=== PATIENT | female | born 1950 | race Caucasian/White ===

== ENCOUNTER 2020-03-09 02:13 | Outpatient (CLI) | payer MEDICARE, MEDICAID, SELFPAY ==
[2020-03-09 17:02] LABS: SARS-CoV-2 RNA PCR Negative
== END 2020-03-09 02:14 | disposition home or self-care (01) ==
LOC: ANHCOVIDDT 02:13
PROVIDERS: PCP Internal Medicine; Visit Provider Internal Medicine Gastroenterology
DX: Z01.812 Encounter for preprocedural laboratory examination (principal); Z20.828 Contact with and (suspected) exposure to other viral communicable diseases
CPT/HCPCS: 87635; C9803; U0003

== ENCOUNTER 2020-03-29 14:33 | Outpatient (CLI) | payer MEDICARE, MEDICAID, SELFPAY ==
--- NOTE | ~2020-03-29 | CT_ITS ---
EXAMINATION: CT chest abdomen pelvis w con DATE: 03/29/2020 15:46 INDICATION: Dyspnea. Rectal pain. TECHNIQUE: Computed tomography (CT) of the chest, abdomen, and pelvis was performed with 100 cc Omnip aque 350 intravenous contrast. Automated exposure control and iterative reconstruction technique were employed. Exam dose: 239.28 mGy-cm total exam DLP. COMPARISON: 04/03/2017 CT abdomen pelvis FINDINGS: CHEST CT: Lower anterior cervical spine surgical fusion. There is very dense breast stroma bilaterally. Normal size and homogeneous enhancement of the thyroid gland. No thyroid mass lesion is evident. No hilar or mediastinal mass lesion or lymphadenopathy. Normal heart size. No thoracic aortic aneurys m or dissection. Normal heart size. No pericardial or pleural effusion. Moderate emphysematous changes are noted. Mild bilateral apical scarring. 4.5 mm nodule is noted in the right upper lobe (series 4 image 62). 3 mm nodule, left upper lobe (series 4 image 46) There is mild discoid atelectasis or scarring in the lingula and the posteromedial left lower lobe. Calcified right lower lobe pulmonary granuloma. ABDOMEN/PELVIS CT: There is chronic intrahepatic and extrahepatic bile duct dilatation, the common bile duct measuring u p to 10.5 mm compared to approximately 9.5 mm on 04/03/2017. There is pancreatic duct dilatation to ap proximately 3 mm diameter, compared to approximately 2.7 mm on 04/03/2017. Status post cholecystectomy . Recommend correlation with serum bilirubin levels. If further evaluation is desired, consider MRCP. No hepatic, splenic or pancreatic space-occupying mass lesion is evident. Normal morphology of the adrenal glands. No renal mass lesion is evident. No urinary tract calculus or hydroureteronephrosis. The urinary blad ciara is unremarkable. The uterus is absent. There are some small bowel air-fluid levels but no small bowel dilatation or wall thickening, pneumat osis or intraperitoneal free air. There is a suture line at the rectosigmoid area. There is a promine nt of fecal material and gas in the colon but no apparent bowel obstruction. Grade 1 anterolisthesis at L4-5 due to degenerative change at the apophyseal joints. No suspicious osteolytic or osteoblastic lesions are noted. IMPRESSION: COPD 4.5 mm right upper lobe and 3 mm left upper lobe nodules; consider CT follow-up in 6 months Chronic mildly increased bile and pancreatic duct dilatation compared to 04/03/2017 Status post cholecystectomy Reviewed, dictated and finalized at [facility]. Reviewed, dictated and finalized at location [facility]. IMPRESSION: COPD 4.5 mm right upper lobe and 3 mm left upper lobe nodules; consider CT follow-up in 6 months Chronic mildly increased bile and pancreatic duct dilatation compared to 017 Status post cholecystectomy
[2020-03-29 15:38] LABS: Estimated Glomerular Filt Rate > 60
== END 2020-03-29 14:34 | disposition home or self-care (01) ==
PROVIDERS: PCP Internal Medicine; Visit Provider Internal Medicine Hematology & Oncology
DX: K62.89 Other specified diseases of anus and rectum (principal); R06.00 Dyspnea, unspecified; J44.9 Chronic obstructive pulmonary disease, unspecified; Z90.49 Acquired absence of other specified parts of digestive tract
CPT/HCPCS: 71260; 74177; Q9967

== ENCOUNTER 2020-04-01 10:39 | Outpatient (CLI) | payer MEDICARE, MEDICAID, SELFPAY ==
[2020-04-01 11:04] LABS: Basophils Percent Auto 0.6 % (0.2-1.2); Eosinophils Percent Auto 0.7 % (0-4.4); Hematocrit 47.3 % (37.0-47.0); Immature Granulocyte Absolute 0.01 K/mm3 (0.00-0.031); Immature Granulocyte Percent A 0.2 % (0-0.5); Lymphocytes Absolute Auto 2.35 K/mm3 (0.9-3.2); Lymphocytes Percent Auto 43.6 % (18.3-44.2); Mean Corpuscular HGB Conc 31.7 g/dl (32-36); Mean Corpuscular Volume 97.7 fl (80-100); Mean Platelet Volume 11.1 fl (7.4-10.4); Monocytes Absolute Auto 0.4 K/mm3 (0.1-0.6); Neutrophils Absolute Auto 2.5 K/mm3 (1.3-6.7); Neutrophils Percent Auto 46.9 % (45.5-73.1); Nucleated Red Blood Cells Perc 0.6 % (0.0-0.2); Platelet Count Result 228 k/mm3 (150-375); Red Blood Count 4.84 M/mm3 (4.2-5.4); Red Cell Distribution Width 13.2 % (11.5-14.5); White Blood Count 5.4 K/mm3 (4.5-10.0)
[2020-04-01 12:30] LABS: Alanine Aminotransferase 10 U/L (4-35); Albumin Level 4.5 g/dL (3.5-5.1); Alkaline Phosphatase 90 U/L (38-126); Anion Gap 12 mmol/L (8-16); Aspartate Amino Transferase 23 U/L (14-36); Bilirubin,Total 0.3 mg/dL (0.2-1.3); Blood Urea Nitrogen 9 mg/dL (7-17); Calcium 9.5 mg/dL (8.4-10.2); Carbon Dioxide 31 mmol/L (22-30); Chloride 100 mmol/L (98-107); Estimated Glomerular Filt Rate > 60; Glucose 95 mg/dL (65-105); Potassium 3.9 mmol/L (3.4-5.0); Sodium 143 mmol/L (137-145)
== END 2020-04-01 10:40 | disposition home or self-care (01) ==
PROVIDERS: PCP Internal Medicine; Visit Provider Internal Medicine Hematology & Oncology
DX: R63.4 Abnormal weight loss (principal)
CPT/HCPCS: 36415; 80053; 85025

== ENCOUNTER 2020-10-28 18:58 | Inpatient (IN) | payer MEDICARE, MEDICAID, SELFPAY ==
[2020-10-28] VITALS (14 sets, daily range): BP systolic 88–158; BP diastolic 46–112; PULSE 57–77; RESP 8–21; TEMP 36.7; O2SAT 95–100
--- NOTE | ~2020-10-28 | XR_ITS ---
EXAMINATION: XR barium swallow modified DATE: 11/02/2020 13:37 INDICATION: Aspiration pneumonia TECHNIQUE: Modified barium esophagram was performed by myself to administered fluoroscopy, in conjun ction with speech pathologist who administered barium in varying consistencies as per speech patholog ist documentation. This was recorded on tape. A single fluoroscopic spot image was recorded. The DAP for this procedure was 2.190 Gycm2. Fluoroscopy exposure time was 3.8 minutes. FINDINGS: Oral stage: Adequate function. Pharyngeal phase: Reduced laryngeal elevation, reduced tongue base retraction, vallecular residue, py riform sinus residue. Laryngeal penetration: Present. Aspiration: Present. Laryngeal sensitivity: Present. IMPRESSION: Abnormal modified barium swallow. Please refer to speech pathologist findings and specifi c feeding recommendations. Reviewed, dictated and finalized at location [facility]. IMPRESSION: Abnormal modified barium swallow. Please refer to speech pathologis t findings and specific feeding recommendations.
--- NOTE | ~2020-10-28 | CT_ITS ---
EXAMINATION: CTA chest PE protocol EXAM DATE: 11/01/2020 15:26 INDICATION: Hypoxia. Tachycardia, concerns for pulmonary emboli. History of COPD. TECHNIQUE: Spiral CTA of the chest (pulmonary arteries) was performed with 100 cc Omnipaque 350 intr avenous contrast injection. Images were acquired during the pulmonary arterial phase. Coronal maxi mum intensity projection 3D-reconstructions were created by the technologist on dedicated workstation . Axial, coronal and sagittal reformatted images were reviewed. The dose-length product (DLP) for t his examination was 143.32 mGy-cm. The exposure was tailored according to patient size (auto mA exp osure control), and iterative reconstruction (ASIR) was used as additional dose reduction technique. Comparison is made to prior examination from 10/30/2020. FINDINGS: Development of extensive bibasilar consolidation with perihilar confluence, appearance most consistent with bacterial pneumonia, possibly aspiration etiology given the large amount of debris w ithin the tracheobronchial tree. Pulmonary arteries are well opacified and without intraluminal filli ng defects. No thoracic aortic dissection. There is mild to moderate emphysema and hyperinflation. There are no pleural or pericardial effusions . There is no mediastinal, hilar or axillary lymphadenopathy. There is no pneumothorax. Heart n ormal in size. There is mild coronary arterial calcification, arterial sclerosis. Upper abdomen is unremarkable. There is thoracic spondylosis without osteoblastic or osteolytic lesions identified. IMPRESSION: 1. Development of extensive bibasilar endobronchial debris and pneumonia. 2. Mild to moderate emphysema and hyperinflation. 3. No pulmonary emboli. Reviewed, dictated and finalized at location B.
--- NOTE | ~2020-10-28 | MR_ITS ---
EXAMINATION: MR brain IAC wo con EXAM DATE: 10/31/2020 12:38 INDICATION: Hearing loss, numb/tingling. TECHNIQUE: Multi-sequential, multiplanar MR images of the brain, brainstem, internal auditory canals were obtained without contrast. Whole brain sagittal T1, axial diffusion, gradient echo (T2*), T1, T 2, FLAIR sequences obtained. High resolution coronal 3-D FIESTA, coronal T1 FSE, axial T1 FSPGR of t he internal auditory canals. Comparison is made to prior examination from MR 10/29/20. FINDINGS: Study is limited due to patient motion. No evidence of mastoid or middle ear opacificatio n. The 7th/8th cranial nerve complexes are symmetric, normal in course and caliber. No cerebellopon aguila angle masses. Posterior fossa unremarkable. 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 There are no areas of restricted diffusion to sugge st acute infarction. There is no acute hemorrhage seen on the T2*, a hemosiderin sensitive sequence. No intraparenchymal brain mass. The ventricles are normal in size. There are no extra-axial collec tions. Flow voids are seen in the cerebral arteries on the T2-weighted sequences consistent with the ir expected patency. The orbits are unremarkable. Soft tissue is unremarkable. There is no signif icant interval change. IMPRESSION: 1. Unremarkable brain MRI examination. Reviewed, dictated and finalized at location B.
--- NOTE | ~2020-10-28 | CT_ITS ---
EXAMINATION: CT brain wo con DATE: 10/28/2020 19:13 INDICATION: Right-sided hemiparesis and slurred speech. TECHNIQUE: Computed tomography (CT) of the head was performed without intravenous contrast. Sagittal and coronal reconstructions were performed. The mA was adjusted according to patient size. Iterative reconstruction technique was employed. The dose-length product was 605.33 mGy-cm. COMPARISON: None FINDINGS: No acute intracranial hemorrhage, acute infarction or abnormal extra axial fluid collection. There ar e couple small dystrophic calcifications at the margins of a small region of decreased white matter a ttenuation in the anterior right frontal lobe. No evident underlying mass or associated mass effect. Ventricles are normal and symmetric. No mass/mass effect. Old fracture defect along the medial wall o f the right orbit. The orbits, paranasal sinuses and mastoid air cells are normal. IMPRESSION: 1. No acute intracranial process. 2. Nonspecific single small region of relatively prominent decreased white matter attenuation in the right frontal lobe. This could represent sequela of old infarct although the underlying cortex appear s relatively preserved and could not exclude an underlying parenchymal lesion. If clinically indicate d could consider further evaluation with either MRI or postcontrast CT. Dr. Scott discussed these findings with Dr. Jackson at 7:18 PM. Reviewed, dictated and finalized at location [facility]. IMPRESSION: 1. No acute intracranial process. 2. Nonspecific single small region of relatively prominent decreased white rafael er attenuation in the right frontal lobe. This could represent sequela of old i nfarct although the underlying cortex appears relatively preserved and could no t exclude an underlying parenchymal lesion. If clinically indicated could consi ciara further evaluation with either MRI or postcontrast CT. Dr. Scott discuss ed these findings with Dr. Jackson at 7:18 PM.
--- NOTE | ~2020-10-28 | CT_ITS ---
EXAMINATION: CT chest abdomen pelvis wo con DATE: 10/30/2020 09:21 INDICATION: Weight loss, emphysema, possible lung mass TECHNIQUE: Computed tomography (CT) of the chest, abdomen, and pelvis was performed without intraveno us contrast. Automated exposure control and iterative reconstruction technique were employed. Exam do se: 243.05 mGy-cm total exam DLP. COMPARISON: None FINDINGS: CHEST CT: Moderately prominent emphysematous changes of the lungs. Approximately 3.5 mg Lasix density, right upper lobe (series 4 image 67). Discoid atelectasis or scarring of middle lobe and at the bases of the lingula and lower lobes, left greater than right. Calcified right lower lobe pulmonary granuloma. Calcified right hilar nodes. No pulmonary infiltrate or consolidation. No hilar or mediastinal mass lesion or lymphadenopathy. Coronary and aortic and great vessel calcifications; no thoracic aortic aneurysm is evident. Normal heart size. No pericardial or pleural effusion. Very dense breast parenchyma is noted bilaterally. No axillary lymphadenopathy. CT ABDOMEN PELVIS: Status post cholecystectomy. The liver, spleen, pancreas, and adrenal glands and kidneys appear unrem arkable on this limited noncontrast examination. There is contrast material within the urinary bladde r and no evidence of intraluminal bladder mass. Status post hysterectomy A suture line is noted at the distal sigmoid colon. No bowel obstruction is evident. No evidence of i ntraperitoneal free air. There is atherosclerotic calcification of the abdominal aorta but no aneurysm. There are calcificatio ns at the origins of the renal arteries especially on the right as well as celiac and superior mesent dipak, iliac and femoral artery calcifications. No intraperitoneal or retroperitoneal or pelvic mass l esion or adenopathy or ascites is evident. No suspicious osteolytic or osteoblastic lesions are noted. Status post anterior cervical spine surgical fusion IMPRESSION: Emphysema Status post cholecystectomy Status post hysterectomy Status post left colon partial resection Status post cervical spine anterior surgical fusion Reviewed, dictated and finalized at [facility]. Reviewed, dictated and finalized at location [facility].
--- NOTE | ~2020-10-28 | XR_ITS ---
EXAMINATION: XR chest 1V portable DATE: 10/31/2020 16:40 INDICATION: Hypoxia. COPD . TECHNIQUE: frontal view of the chest was obtained. COMPARISON: Chest radiograph dated and CT dated 10/30/2020 FINDINGS: Emphysema with hyperexpansion of lungs. Significant interval progression in consolidation with air br onchograms in the right lower lung zone concerning for pneumonia. There is also been progression of m ore subtle airspace opacities the left lower lung zone also suspicious for pneumonia. No pleural effu adrienne or pneumothorax. Heart size is normal. Atherosclerotic aorta. Bone graft cages and anterior plat e and screw fixation for multilevel mid to lower cervical anterior spinal fusion. IMPRESSION: 1. Interval progression of lung disease in the bilateral lower lung zones, right greater than left, m ost consistent with pneumonia. Reviewed, dictated and finalized at location A. IMPRESSION: 1. Interval progression of lung disease in the bilateral lower lung zones, righ t greater than left, most consistent with pneumonia.
--- NOTE | ~2020-10-28 | CT_ITS ---
EXAMINATION: CTA BRAIN/CAROTID DATE: 10/28/2020 22:26 INDICATION: Aphasia and right-sided weakness and numbness TECHNIQUE: Computed tomographic angiography (CTA) of the head and neck was performed with 100 mL Omni paque-350 intravenous contrast. Multiplanar reconstructions and maximum intensity projection 3D-recon structions of the carotid arteries and of the intracranial arteries were created by the technologist on a separate workstation. Automated exposure control and iterative reconstruction technique were emp loyed.The dose-length product was 1048.82 mGy-cm. COMPARISON: Head CT dated 10/28/2020 FINDINGS: Carotid arteries: Thoracic aorta at the arch is normal in caliber with no dissection. Small amount of atherosclerotic p laque without significant stenosis at the origin of the left subclavian artery. There is a small amou nt of atherosclerotic plaque with 0% stenosis of the right carotid bulb relative to normal distal art joseline lumen diameter (NASCET criteria). There is 20% stenosis of the left carotid bulb relative to norm al distal artery lumen diameter. Left vertebral artery is dominant. Mild emphysema. There is diffuse bronchial wall thickening which could be seen with bronchitis or reactive airway disease/asthma. C3-C 6 instrumented anterior spinal fusion with plate and screw fixation. Intracranial arteries Atherosclerotic plaque without significant stenosis at the bilateral carotid siphons. There is no hem odynamically significant stenosis in the vertebral, basilar and internal carotid arteries. Left verte bral artery is dominant. There are no aneurysms identified. Both A1 and P1 segments are patent. Cer ebral arterial arborization appears symmetric. Small region of decreased attenuation in the right fro ntal white matter suspicious for sequela of chronic lacunar infarct. No mass or other abnormally enha ncing lesions identified in the brain. IMPRESSION: 1. 0% stenosis of the right carotid bulb relative to normal distal artery lumen diameter (NASCET crit eria). 2. 20% stenosis of the left carotid bulb relative to normal distal artery lumen diameter. 3. Unremarkable cerebral angiogram with no evident aneurysm, dissection or hemodynamically significan t stenosis. 4. Mild emphysema and diffuse bronchial wall thickening which could be seen with bronchitis or reacti ve airway disease/asthma. Reviewed, dictated and finalized at location A. IMPRESSION: 1. 0% stenosis of the right carotid bulb relative to normal distal artery lumen diameter (NASCET criteria). 2. 20% stenosis of the left carotid bulb relative to normal distal artery lumen diameter. 3. Unremarkable cerebral angiogram with no evident aneurysm, dissection or hemo dynamically significant stenosis. 4. Mild emphysema and diffuse bronchial wall thickening which could be seen wit h bronchitis or reactive airway disease/asthma.
--- NOTE | ~2020-10-28 | MR_ITS ---
EXAMINATION: MR brain/brain stem wo/w con EXAM DATE: 10/29/2020 15:00 INDICATION: Abnormal brain CT, right hemiparesis. TECHNIQUE: Magnetic resonance imaging (MRI) of the brain/brain stem obtained without contrast. Sagit ena T1, axial diffusion, gradient echo (T2*), T1, T2, FLAIR sequences obtained. Patient was then inj ected with 7 cc intravenous Multihance contrast. Axial and coronal postcontrast T1 weighted sequences obtained. Correlation is made to head CT from yesterday. FINDINGS: Small acute right frontal lobe infarction. There are no areas of restricted diffusion to de [place] santos ggest acute infarction. There is no acute hemorrhage seen on the T2*, a hemosiderin sensitive sequen ce. No intraparenchymal brain mass. The ventricles are normal in size. There are no extra-axial col lections. Flow voids are seen in the cerebral arteries on the T2-weighted sequences consistent with their expected patency. The orbits are unremarkable. Soft tissue is unremarkable. There are no ar eas of abnormal enhancement on the postcontrast images. IMPRESSION: 1. 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 2. No acute findings. Reviewed, dictated and finalized at location A.
--- NOTE | ~2020-10-28 | XR_ITS ---
EXAMINATION: XR chest 2V EXAM DATE: 10/29/2020 15:12 INDICATION: Weight loss, history of lung nodules. TECHNIQUE: Frontal and lateral projections of the chest obtained and reviewed. Comparison is made to prior examination from 12/18/2013. FINDINGS: The lungs are hyperinflated which can be seen with chronic obstructive pulmonary disease ( a clinical diagnosis of functional impairment), but is not diagnostic of it. No confluent consolidati on, pneumothorax or pleural effusion suspected. Cardiomediastinal silhouette is normal. There is aort ic arteriosclerosis. Some of fusion hardware. IMPRESSION: Chronic hyperinflation. Reviewed, dictated and finalized at location A. IMPRESSION: Chronic hyperinflation.
--- NOTE | 2020-10-28 19:04 | ECG_ITS ---
Measurements Intervals [place] Rate: 75 P: 74 MN: 153 QRS: 55 QRSD: 82 T: 60 QT: 366 QTc: 411 Interpretive Statements SINUS RHYTHM INCOMPLETE RIGHT BUNDLE BRANCH BLOCK BASELINE ARTIFACT- I, II, III, AVR, AVL, AVF, V2-V3 BORDERLINE ECG Electronically Signed On 10-28-2020 20:16:39 CDT by Gage Williamson D.O.
[2020-10-28 19:21] LABS: Glucose Point of Care 72 (65-105)
--- NOTE | 2020-10-28 19:34 | ED.NEUROSD ---
HPI - Neuro Symptoms/Deficit General Chief Complaint: Suspected CVA Stated Complaint: code stroke Time Seen by Provider: 10/28/20 19:18 Source: patient Mode of arrival: EMS Limitations: no limitations History of Present Illness HPI Narrative: Patient is a 70-year-old female complaining of right facial numbness, intermittent aphasia and mild right-sided weakness that started approximately 2 weeks ago. Patient states that she does have a history of right-sided weakness has been going on for years . Patient states that her aphasia started 2 weeks ago with last for about 30 minutes to an hour and would resolve. Patient saw her doctor today and told about the symptoms so she was sent here in the emergency room. Patient states that she currently does not have any symptoms except for very mild numbness on the right side of her face, otherwise denies aphasia, visual disturbance, focal weakness or numbness, chest pain, shortness of breath, dull pain, nausea, vomiting, fever or chills. Related Data Home Medications Medication Instructions Recorded Confirmed buprenorphine-naloxone 1 film SUBLINGUAL BID 03/02/20 03/02/20 cholecalciferol (vitamin D3) 125 mcg PO DAILY 03/02/20 03/02/20 [Vitamin D3] gabapentin 600 mg PO TID 03/02/20 03/02/20 Allergies Allergy/AdvReac Type Severity Reaction Status Date / Time codeine Allergy Unknown swelling Verified 03/02/20 10:45 of hands Review of Systems Review of Systems: All systems reviewed & are unremarkable except as noted in HPI and below Constitutional: Constitutional: Denies body ache(s), Denies chills, Denies excessive sweating, Denies fatigue, Denies fever(s), Denies headache(s), Denies lethargy, Denies malaise and Denies weight loss Eyes: Eyes: Denies blurry vision, Denies change in vision and Denies loss of vision ENT: Denies dizziness, Denies ear discharge, Denies headache(s), Denies lip swelling, Denies epistaxis, Denies nasal congestion, Denies neck pain, Denies throat swelling and Denies tongue swelling Cardiovascular: Cardiovascular: Denies chest pain, Denies chest pain at rest, Denies chest pain with activity, Denies diaphoresis, Denies rapid heart rate, Denies edema, Denies irregular heart rhythm, Denies lightheadedness, Denies palpitations, Denies dyspnea and Denies dyspnea on exertion Respiratory: Respiratory: Denies chest congestion, Denies cough, Denies hemoptysis, Denies dyspnea and Denies dyspnea on exertion Gastrointestinal: Gastrointestinal: Denies abdominal pain, Denies melena, Denies hematochezia, Denies diarrhea, Denies nausea, Denies vomiting and Denies hematemesis Musculoskeletal: Musculoskeletal: Denies abnormal gait, Denies deformity, Denies joint swelling, Denies limited range of motion, Denies neck pain and Denies numbness Neurologic: Denies Abnormal speech present, Denies abnormal gait, Denies confusion, Denies dizziness, Denies headache(s), Denies focal weakness, Denies loss of vision, Denies numbness, Denies Other visual disturbances and Denies Sensory deficit (Neuro) Psychiatric: Psychiatric: Denies confusion, Denies depression, Denies auditory hallucinations, Denies homicidal ideation and Denies suicidal ideation Endocrine: Endocrine: Denies cold intolerance, Denies excessive sweating, Denies fatigue, Denies heat intolerance and Denies palpitations Hematologic/Lymphatic: Hematologic/Lymphatic: Denies easy bleeding and Denies easy bruising Allergic/Immunologic: Allergic/Immunologic: Denies lip swelling, Denies throat swelling and Denies tongue swelling PMFSH Social History Social History Smoking packs per day: 1 Smoking cigarettes per day: 20.0 Years smoked: 55 Smoking pack-years: 55.00 Smoking status: Current every day smoker Tobacco type: cigarettes Second hand tobacco smoke exposure: No Alcohol intake: former Substance use: former Substance use type: marijuana and crack/cocaine Spiritual care concerns: No Comments Past
[2020-10-28 19:43] LABS: Basophils Percent Auto 0.8 % (0.2-1.2); Eosinophils Absolute Auto 0.1 K/mm3 (0-0.3); Eosinophils Percent Auto 1.7 % (0-4.4); Hematocrit 45.2 % (37.0-47.0); Immature Granulocyte Absolute 0.01 K/mm3 (0.00-0.031); Immature Granulocyte Percent A 0.2 % (0-0.5); Lymphocytes Absolute Auto 2.79 K/mm3 (0.9-3.2); Lymphocytes Percent Auto 52.7 % (18.3-44.2); Mean Corpuscular Hemoglobin 31.8 pg (26-34); Mean Corpuscular Volume 102.7 fl (80-100); Monocytes Absolute Auto 0.4 K/mm3 (0.1-0.6); Monocytes Percent Auto 7.4 % (2.6-8.5); Neutrophils Percent Auto 37.2 % (45.5-73.1); Platelet Count Result 168 k/mm3 (150-375); Red Cell Distribution Width 12.7 % (11.5-14.5); White Blood Count 5.3 K/mm3 (4.5-10.0)
[2020-10-28 20:20] LABS: Alanine Aminotransferase 9 U/L (4-35); Albumin Level 3.5 g/dL (3.5-5.1); Alkaline Phosphatase 83 U/L (38-126); Anion Gap 1 mmol/L (8-16); Aspartate Amino Transferase 20 U/L (14-36); Bilirubin,Total < 0.1 mg/dL (0.2-1.3); Blood Urea Nitrogen 8 mg/dL (7-17); Calcium 8.1 mg/dL (8.4-10.2); Carbon Dioxide 33 mmol/L (22-30); Chloride 108 mmol/L (98-107); Estimated CRCL calculation 24 ml/min; Estimated Glomerular Filt Rate 44; Glucose 79 mg/dL (65-105); Potassium 4.4 mmol/L (3.4-5.0); Sodium 142 mmol/L (137-145)
[2020-10-28 20:22] LABS: Prothrombin Time 13.2 Seconds (11.1-14.7)
[2020-10-28 20:24] LABS: Partial Thromboplastin Time 27.6 SECONDS (22.3-36.8)
[2020-10-28 20:32] LABS: Troponin I < 0.012 ng/mL (0.000-0.034)
[2020-10-28] MEDS: LACTATED RINGERS 1,000 ML 999 ML IV CONT (21:36)
[2020-10-28 22:28] LABS: Add Urine Microscopic? NO; Appearance Urine Clear (Clear); Bilirubin Urine Negative (Negative); Blood Urine Negative (Negative); Color Urine Straw (Yellow); Glucose Urine UA Negative (Negative); Ketones Urine Negative (Negative); Leukocyte Esterase Ur Negative LEU/UL (Negative); Nitrate Urine Negative (Negative); Protein Urine Negative (Negative); Urobilinogen Urine Negative mg/dL (<2.0)
[2020-10-28 22:31] LABS: Specific Grav Ur 1.004 (1.001-1.035)
[2020-10-28 22:43] LABS: Amphetamine Screen Urine Negative (Negative); Barbiturate Screen Urine Negative (Negative); Benzodiazepines Screen Urine Positive (Negative); Cannabinoid Screen Urine Positive (Negative); Cocaine Screen Urine Negative (Negative); Methadone Screen Urine Negative (Negative); Opiate Screen Urine Negative (Negative); Phencyclidine Screen Urine Negative (Negative)
[2020-10-29] VITALS (11 sets, daily range): BP systolic 96–151; BP diastolic 40–71; PULSE 46–68; RESP 16–20; TEMP 36.4–36.9; O2SAT 92–99; BMI 16.5; BMI 15.2
--- NOTE | 2020-10-29 | ECHO_ITS ---
Patient Info Name: Morena Sanchez Age: 70 years : 1950 Gender: Female Ht: 63 in Wt: 85 lbs BSA: 1.29 m2 HR: 56 bpm BP: 107 / 40 mmHg Heart Rhythm: Sinus Rhythm Technical Quality: Good Exam Date: 10/29/2020 1:18 PM Exam Location: [facility] Pulmonary Exam Room: 316 Patient Status: Inpatient Admit Date: 10/28/2020 Staff Ordering Physician: Maria Isabel Ordoñez PA-C Customer Experience Strategist: Manda Machuca RDCS Attending Provider: Maria Isabel Ordoñez PA-C Referring Physician: Smita RETANA; Exam Type: CA echo doppler w bubble study Study Info Indications - POSSIBLE CVA R/O CSE Complete two-dimensional, color flow and Doppler transthoracic echocardiogram is performed with agitated saline. Contrast/Agitated Saline Contrast/Ag. Saline: Agitated Saline Amount: 20.00 ml Administered By: Sami Chapin RN Existing IV Access: Yes IV Access Condition: patent with no signs of infiltration Summary 1. Left ventricular chamber dimension is normal. 2. Left ventricular systolic function is normal, estimated at 65-70%. 3. Left atrial chamber dimension is mildly enlarged. 4. No significant valve lesions. Left Ventricle Left ventricular chamber dimension is normal. Left ventricular systolic function is normal, estimated at 65-70%. The left ventricular diastolic function is normal. Right Ventricle Right ventricular chamber dimension is normal. Left Atria Left atrial chamber dimension is mildly enlarged. Right Atria Right atrial chamber dimension is normal. Atrial Septum Intact interatrial septum visualized by agitated saline imaging. Aortic Valve The aortic valve is trileaflet. There is mild aortic valve sclerosis. Pulmonic Valve The pulmonic valve is normal. Mitral Valve The mitral valve has normal leaflets. Tricuspid Valve The tricuspid valve leaflets are normal. Pericardium/Pleural The pericardium appears normal. Aorta The aortic root size at the sinus of Valsalva is normal. Left Ventricular Outflow Tract Name Value Normal LVOT 2D LVOT Diameter 2.0 cm LVOT Doppler LVOT Peak Velocity 111 cm/s LVOT Peak Gradient 5 mmHg LVOT Mean Gradient 2 mmHg LVOT VTI 23 cm LVOT VTI/AV VTI Ratio 0.8 LVOT Stroke Volume 71 ml LVOT CO 11.7 l/min LVOT CI 9.1 l/min/m2 Pulmonic Valve Name Value Normal PV Doppler PV Peak Velocity 98 cm/s PV Peak Gradient 4 mmHg Mitral Valve Name Value No
--- NOTE | 2020-10-29 00:38 | ADMGEN ---
This patient, Morena Sanchez, was admitted to [facility] Room 316-01. Patient/family oriented to hospital policies and general routines including ID bracelet, bed and alarms, visiting hours, pain management, procedures, bathroom and other care routines, personal items, smoking policy, room service/diet, and visiting hours. Information on how to activate the Rapid Response Team has been discussed. Patient/Family are encouraged to report perceived risks to care and to ask questions if they do not understand what they are told or what they should do.
--- NOTE | 2020-10-29 05:17 | PM.IMHP ---
H&P: HPI History of Present Illness Date/Time: 10/29/20 05:17 Chief Complaint: Right-sided weakness, slurred speech Narrative: 70-year-old female with past medical history of chronic pain syndrome, peripheral neuropathy and chronic tobacco use who presented to the ER from primary care physician's office via EMS due to right facial numbness and aphasia. Over the last 2 weeks he has noticed right facial numbness that is been constant. It is been accompanied by intermittent aphasia. The patient reports that her last episode of aphasia was about a week ago. When her aphasia occurs at usually last between 30 minutes to 1 hour before resolves. She currently only has mild numbness the right side her face down into her neck and shoulder. She has not noticed any accompanying headache or visual changes. She reports that she just generally feels weak all over. She denies any localizing weakness to her hands or legs. She states that she is having trouble walking because her legs are just weak and shaky. She has had a 40 lb weight loss over the last 3 years. She reports that at times she will be ravenous and cannot get enough food and then at other times she will be nauseated and can't convince her to self to eat anything. She has been under increased stress recently as her brother of lung cancer 3 months ago. Her aunrhgls-ss-gct also of lung cancer with metastasis to the brain in July. Her other brother was recently diagnosed with lung cancer. The patient had CT of the chest abdomen pelvis performed March 2020 which demonstrated 4.5 mm right upper lobe nodule and 3 mm left upper lobe nodule. The patient did not have any further imaging follow-up on these findings. She does report chronic shortness of breath that is unchanged from baseline. She has had a chronic cough for the last year. Cough is nonproductive. She is not having fevers or chills. She had incidental findings of mild emphysematous changes and diffuse bronchial wall thickening noted on her CT of the head and neck. She reports chronic urinary urgency. She has occasional sensation of incomplete bladder emptying. She denies any dysuria or hematuria. Review of Systems Review of Systems: Narrative: 12 systems were reviewed with pertinent positives and negatives per HPI. Except as documented in the HPI, all other systems were reviewed and are negative. [facility] Past Medical History Medical History (Updated 10/29/20 @ 08:28 by Dipti Dean DO) Chronic back pain Continuous tobacco abuse COPD (chronic obstructive pulmonary disease) Hepatitis C virus infection cured after antiviral drug therapy Lung nodules Noted on CT from March 2020 with 4.5 mm right upper lobe and 3 mm left upper lobe with nodule Myocardial infarct 2014 Neuropathy Surgical History Surgical History (Updated 10/29/20 @ 08:04 by Dipti Dean DO) History of appendectomy History of cardiac catheterization (~2012) History of colon resection (~2004) For uncertain reason History of colonoscopy with polypectomy (~2016) History of total hysterectomy with bilateral salpingo-oophorectomy (BSO) Hx of cholecystectomy Family History Family History (Updated 10/29/20 @ 08:06 by Dipti Dean DO) Sibling Lung cancer July 2020 Sibling Lung cancer 2nd brother just recently diagnosed with lung cancer August 2020 Social History Social History (Updated 10/29/20 @ 08:15 by Dipti Dean DO) Social History: The patient lives at home with her daughter and granddaughter. She has several other children as well. 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 She started smoking at age 15. She has smoked as much as a pack of cigarettes per day but has cut back to 1/3 of a pack per day. She denies any alcohol use or illicit substance use. Primary care physician: Dr. Daljit Walters Code status: Full code Ruth
[2020-10-29 06:21] LABS: Hematocrit 43.6 % (37.0-47.0); Hemoglobin 13.7 g/dL (12.0-15.0); Mean Corpuscular HGB Conc 31.4 g/dl (32-36); Mean Corpuscular Hemoglobin 31.8 pg (26-34); Mean Corpuscular Volume 101.2 fl (80-100); Mean Platelet Volume 11.2 fl (7.4-10.4); Platelet Count Result 171 k/mm3 (150-375); Red Blood Count 4.31 M/mm3 (4.2-5.4); Red Cell Distribution Width 12.4 % (11.5-14.5); White Blood Count 4.9 K/mm3 (4.5-10.0)
[2020-10-29 06:33] LABS: Anion Gap 1 mmol/L (8-16); Blood Urea Nitrogen 7 mg/dL (7-17); Calcium 8.6 mg/dL (8.4-10.2); Carbon Dioxide 33 mmol/L (22-30); Chloride 106 mmol/L (98-107); Estimated CRCL calculation 31 ml/min; Estimated Glomerular Filt Rate > 60; Glucose 82 mg/dL (65-105); Potassium 4.2 mmol/L (3.4-5.0); Sodium 140 mmol/L (137-145)
--- NOTE | 2020-10-29 07:07 | PHAR ---
HOME MED Buprenorphine-Naloxone 8-2 mg film has been verified. Only 1 film packet (1 dose) in the box at this time.
[2020-10-29 07:36] LABS: Folic Acid 5.1 ng/mL (2.76->20)
[2020-10-29] MEDS: GABAPENTIN 300 MG CAPSULE 600 MG PO ×3 (08:43→17:20)
--- NOTE | 2020-10-29 10:17 | PM.IMPN ---
Progress Note: A&P Assessment and Plan (1) Bradycardia: Code(s): R00.1 - Bradycardia, unspecified Status: Acute Assessment and Plan: Patients HR on EKG during ER visit was normal at 75 bpm. On Tele while she is resting in bed her HR drops to 35 bpm and in the 40's. Repeat EKG shows Bradycardia HR 45 bpm. Appears stable when compairing to ER EKG with some slight ST changes to V3-V6. Called and talked to Dr. He Cardiologyabout Consultation who will come up to further evaluate the patient. Continue monitoring on Tele. Do not give any medications that could decrease her heart rate. *Will HOLD MRI until Cardiology evaluates the patient because I want to keep her on Tele monitoring while Ajay. Appreciate Cardiology's input. (2) Aphasia: Code(s): R47.01 - Aphasia Status: Acute Assessment and Plan: Concerning for TIA vs CVA vs mass vs met CA. Initial noncontrast CT concerning for old stroke verses mass. Pending MRI of the brain and brainstem with and without contrast. Will start the patient on full-dose aspirin daily. Continue monitoring. Continue Neuro checks Q shift. (3) Numbness and tingling of right side of face: Code(s): R20.0 - Anesthesia of skin; R20.2 - Paresthesia of skin Status: Acute Assessment and Plan: Please see above plan. (4) Acute kidney injury: Code(s): N17.9 - Acute kidney failure, unspecified Status: Acute Assessment and Plan: Resolved after only 1 L of IV fluids given in the ER. (5) Weight loss: Code(s): R63.4 - Abnormal weight loss Status: Acute Assessment and Plan: Reports 40 lb wt loss. Hx of pulmonary nodules she never got worked up. Will get CXR to evaluate nodules. Conserns for Underlying Cancer with elevated Lymphocytes on labs, wt loss, decreased appetite and CT Brain showing possible mass. Will continue monitoring and further evaluate. (6) Continuous tobacco abuse: Code(s): Z72.0 - Tobacco use Status: Acute Assessment and Plan: Given the patient's weight loss, continuous tobacco use and history of lung nodules will check chest x-ray to further evaluate her lung nodules. She may benefit from repeat CT of the chest. Time Spent With Patient Time with patient: 25 - 35 minutes Subjective Date/time seen: 10/29/20 10:17 Interval history: Patient is 70 year old with history of narcotic abuse on Suboxone, peripheral neuropathy, and history of pulmonary nodules without further workup/evaluation in the past, who presented to the ER with symptoms of intermittent right sided facial tingling which goes down to her right shoulder and neck, with associated hearing loss, and feeling of being off balance. Initial vitals showed afebrile, HR 75 bpm, BP 123/80, O2 100% on RA. Initial labs showed elevated MCV, and lymphocytes on differential. Normal Coag panel. DAVID with Cr 1.20. Negative initial troponin. Normal B12 and Folic acid. Normal UA. Urine Tox showed Benzodiazapines and Cannabinoids. She was admitted into the hospital for further CVA work up, tele monitoring and evaluation for possible cancer with CXR with her symptoms of 40 lb wt loss, lack of appetite. Date of Service 10/29/20: The patient reports feeling very tired and fatigued. She did not sleep well last night. She does not have an appetite, but denies any nausea, vomiting, abdominal pain. She denies headache, vision changes, lightheadedness, dizziness, syncope, leg swelling, calf pain, or any other symptoms at this time. She does report taking some benzodiazapine at home sometimes. She denies taking any benzos or other medications from her purse since admission. Review of Systems Review of Systems: All sys
--- NOTE | 2020-10-29 10:54 | ECG_ITS ---
Measurements Intervals [place] Rate: 45 P: 42 AL: 157 QRS: 67 QRSD: 81 T: 70 QT: 493 QTc: 427 Interpretive Statements SINUS BRADYCARDIA INCOMPLETE RIGHT BUNDLE BRANCH BLOCK PEAKED T WAVES- CONSIDER HYPERKALEMIA OR ISCHEMIA ABNORMAL ECG Electronically Signed On 10-29-2020 14:30:01 CDT by Gage Williamson D.O.
[2020-10-29] MEDS: ALBUTEROL SULFATE (*SP) AEROSOL 1 PUFF 2 PUFF INHALATION ×2 (11:41→17:21)
[2020-10-29 12:00] LABS: Troponin I < 0.012 ng/mL (0.000-0.034)
--- NOTE | 2020-10-29 13:41 | PCNSR ---
On 10/29/20, the student,Francheska Styles, provided care and completed [facility] documentation on this patient. I have reviewed the student's documentation and agree with the findings.
[2020-10-29] MEDS: ASPIRIN 325 MG TABLET PO (13:51)
--- NOTE | 2020-10-29 13:53 | PM.CNCAR ---
Assessment and Plan Additional Plan This is a 70-year-old woman who is chronically ill appearing a chronic smoker who has been reporting a significant weight loss and appears to be rather cachectic. She has had some symptoms of intermittent expressive aphasia starting in the last couple of weeks. She is now demonstrating some sinus bradycardia but no other electrocardiographic abnormalities. There is concern on her CT scan that she may have a cerebral mass lesion. I would be most suspicious of it cerebral mass lesion could be causing increased intracranial pressure and bradycardia in that setting. Nonetheless she is not symptomatic with the bradycardia and at this point there is no indication for specific treatment she is taking no medications that would reduce her heart rate. Again as I mentioned above echocardiogram does not show any structural heart disease or any residual LV dysfunction from her takotsubo event that occurred about 7 years ago. An MRI of the brain is been planned and seems appropriate cardiac kaur I believe she is stable to have that exam Remington He MD [facility] History of Present Illness History of Present Illness Consult date/time: 10/29/20 13:53 Reason For Visit: Aphasia, Right Sided Weakness, Narrative: This is a 70-year-old woman I am seeing at the request of the hospitalist today because of sinus bradycardia. The patient is in her usual state of health when she was sent to the emergency room yesterday by the primary care physician. Patient is unable to tell me why she was sent to the hospital by the PCP. She says that she has been having complaints of some facial numbness that has been largely persistent on the right side and then also some episodes of expressive aphasia where she can't speak for a short period of time. The last episode of this was about a week ago. She apparently was in the PCP office yesterday and related this history and was sent to the emergency room. The patient's cardiac evaluation thus far looks unremarkable she has a normal electrocardiogram on admission her subsequent electrocardiograms demonstrate sinus bradycardia but are otherwise normal. She had a echocardiogram done with a bubble study a short time ago which is yet to be dictated but is a normal exam. She does not have any prior history of cardiac problems other than an episode of takotsubo stress cardiomyopathy in 2013 at which time she came in here and had a normal coronary angiogram done with a large area of anteroapical akinesia. That subsequently resolved and she has not had any subsequent cardiac problems after that. Regarding the bradycardia she has no history of syncope or near syncope. The patient had a head CT scan which is suspicious of a lesion in the frontal lobe possibly a mass lesion. Follow-up by MRI of this has been recommended and has yet to be done. Apparently there is a hold on the MRI until I see the patient in consultation and indicates she is stable to have that exam. She is a longstanding smoker since she has been a teenager. She has an unintentional weight loss of about 40-50 lb in the last year and previous CT scan of the chest evidence of some pulmonary nodules which I do not believe were subsequently evaluated. Review of Systems Constitutional: Constitutional: Reports fatigue and Reports weakness Eyes: Eyes: Reports no additional eye complaints ENT: Reports system reviewed and no additional complaints, except as documented Cardiovascular: Cardiovascular: Reports no additional cardiovascular complaints Respiratory: Respiratory: Reports no additional respiratory complaints Gastrointestinal: Gastrointestinal: Reports no additional gastrointestinal complaints Musculoskeletal: Musculoskeletal: Reports no additional musculoskeletal complaints Neurologic: Reports as per HPI Endocrine: Endocrine: Reports no additional endocrine complaints Allergic/Immunologic: Allergic/Immunologic: Reports no addit
[2020-10-29] MEDS: diazePAM (*CRX) 5 MG TABLET 2.5 MG PO (14:13)
--- NOTE | 2020-10-29 14:33 | PCPTNOTE ---
Attempted PT eval. Pt going to MRI. Will try again tomorrow.
--- NOTE | 2020-10-29 19:45 | PHAR ---
HOME MEDICATION VERIFIED BY PHARMACY: PATIENTS FAMILY BROUGHT IN 4 MORE SUBOXONE 8-2MG FILM STRIPS DISSOLVE 1 FILM ON TONGUE TWICE DAILY RX#[id number]
[2020-10-29] MEDS: AMITRIPTYLINE HCL 25 MG TABLET 50 MG PO (20:30)
[2020-10-30] VITALS (9 sets, daily range): BP systolic 105–146; BP diastolic 50–87; PULSE 47–89; RESP 16; TEMP 36.8–38.2; O2SAT 90–92
[2020-10-30 06:16] LABS: Hematocrit 38.5 % (37.0-47.0); Hemoglobin 12.7 g/dL (12.0-15.0); Mean Corpuscular Hemoglobin 32.2 pg (26-34); Mean Corpuscular Volume 97.5 fl (80-100); Mean Platelet Volume 11.1 fl (7.4-10.4); Platelet Count Result 167 k/mm3 (150-375); Red Blood Count 3.95 M/mm3 (4.2-5.4); Red Cell Distribution Width 12.2 % (11.5-14.5); White Blood Count 5.4 K/mm3 (4.5-10.0)
[2020-10-30 06:29] LABS: Anion Gap 1 mmol/L (8-16); Blood Urea Nitrogen 9 mg/dL (7-17); Calcium 8.1 mg/dL (8.4-10.2); Carbon Dioxide 33 mmol/L (22-30); Chloride 105 mmol/L (98-107); Estimated CRCL calculation 35 ml/min; Estimated Glomerular Filt Rate > 60; Glucose 78 mg/dL (65-105); Potassium 4.2 mmol/L (3.4-5.0); Sodium 139 mmol/L (137-145)
[2020-10-30 08:39] LABS: HIV 1/2 Ab P24 Ag Result Negative (Negative)
[2020-10-30] MEDS: GABAPENTIN 300 MG CAPSULE 600 MG PO ×3 (08:41→16:33)
[2020-10-30] MEDS: ALBUTEROL SULFATE (*SP) AEROSOL 1 PUFF 2 PUFF INHALATION ×4 (08:41→20:08)
[2020-10-30] MEDS: ASPIRIN 325 MG TABLET PO (08:41)
--- NOTE | 2020-10-30 09:38 | PM.PNCARD ---
Progress Note: A&P Additional Plan asymptomatic sinus bradycardia in this 70-year-old lady with chronic lung disease and significant cachexia. There is however no treatment or further cardiac investigation that appears to be necessary. I am going to sign off of her case at this time. Disposition per the primary team. Remington He MD [facility] Subjective Date/time seen: Date of service:10/30/20 09:38 Interval history: Follow-up visit in this 70-year-old lady with: Asymptomatic sinus bradycardia yesterday. Patient's heart rate is in the 70s today normal sinus rhythm no arrhythmias of any significance seen on telemetry. She has a previous history of episode of takotsubo stress cardiomyopathy in the remote past in 2013. Echocardiogram does demonstrate this has completely resolved/recovered. Once again she is a chronic smoker very thin and cachectic in appearance but no obvious cardiac issues. She is comfortable today offers no complaints hoping to be able to be discharged. Exam Const: General: comfortable and no acute distress Other: Thin cachectic lady who is eating her breakfast appears to be pleasant comfortable in good spirits HENMT: Mouth: Yes moist mucous membranes Eyes: Sclera: sclerae normal Pupils: Equal, round and reactive pupils present Neck: Neck: supple and no JVD Resp: Effort & Inspection: normal respiratory effort Auscultation: diminished lung sounds Cardio: Rate: regular rate Rhythm: regular rhythm GI: GI Palp: Yes Soft to palpation Auscultation: normal bowel sounds Skin: General skin exam: normal color Neuro: Cognition (Neuro): normal cognition Extrem: Other: thin and wasted in appearance Objective Data Vital Signs Vital Signs: Vital Signs - 24 hr 10/29/20 11:42 10/29/20 12:00 10/29/20 14:00 Temperature 36.4 C L Pulse Rate 52 L 52 L Respiratory Rate 18 Blood Pressure 107/40 L Pulse Oximetry 97 93 10/29/20 16:00 10/29/20 20:00 10/29/20 22:00 Temperature 36.6 C Pulse Rate 48 L 65 54 L Respiratory Rate 20 Blood Pressure 110/45 L Pulse Oximetry 92 10/30/20 00:00 10/30/20 04:00 10/30/20 06:00 Temperature 36.8 C Pulse Rate 50 L 47 L 48 L Respiratory Rate 16 Blood Pressure 105/50 L Pulse Oximetry 92 Intake/Output Intake/Output: Intake & Output 10/27/20 10/28/20 10/29/20 10/30/20 23:59 23:59 23:59 23:59 Intake Total 1000 840 300 Output Total 100 800 Balance 1000 740 -500 Meds/Results Medications: Active Medications Generic Name Dose Route Start Last Admin Trade Name Wileyq PRN Reason Stop Dose Admin Albuterol 2 puff 10/29/20 12:00 10/30/20 08:41 Albuterol Sulfate (*Sp) Aerosol 1 Puff INHALATION 2 puff QIDRT JUAN Administration Amitriptyline HCl 50 mg 10/29/20 21:00 10/29/20 20:30 Amitriptyline Hcl 25 Mg Tablet PO 50 mg HS JUAN Administration Aspirin 325 mg 10/29/20 08:30 10/30/20 08:41 Aspirin 325 Mg Tablet PO 325 mg DAILY@0800 JUAN Administration Gabapentin 600 mg 10/29/20 09:00 10/30/20 08:41 Gabapentin 300 Mg Capsule PO 600 mg TID JUAN Administration Radiology Results: ITS Impressions Head CT 10/28/20 19:15 IMPRESSION: 1. No acute intracranial process. 2. Nonspecific single small region of relatively prominent decreased white matter attenuation in the right frontal lobe. This could represent sequela of old infarct although the underlying cortex appears relatively preserved and could not exclude an underlying parenchymal lesion. If clinically indicated could consider further evaluation with either MRI or postcontrast CT. Dr. Scott discussed these findings with Dr. Jackson at 7:18 PM. Head/Neck CTA 10/28/20 22:34 IMPRESSION: 1. 0% stenosis of the right carotid bulb relative to normal distal artery lumen diameter (NASCET criteria). 2. 20% stenosis of the left carotid bulb relative to normal distal artery lumen diameter. 3. Unremarkable cerebral angiogram wit
--- NOTE | 2020-10-30 13:30 | PM.IMPN ---
Progress Note: A&P Assessment and Plan (1) Aphasia: Code(s): R47.01 - Aphasia Status: Acute Assessment and Plan: Concerning for TIA vs CVA vs mass vs met CA. Initial noncontrast CT concerning for old stroke verses mass. 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 No acute findings. Patient is still having symptoms of right-sided facial/ numbness tingling as well as hearing loss. Will order an MRI due to symptoms to rule out schwannoma Continue monitoring. Continue Neuro checks Q shift. (2) Numbness and tingling of right side of face: Code(s): R20.0 - Anesthesia of skin; R20.2 - Paresthesia of skin Status: Acute Assessment and Plan: Please see above plan. (3) Bradycardia: Code(s): R00.1 - Bradycardia, unspecified Status: Acute Assessment and Plan: Patients HR on EKG during ER visit was normal at 75 bpm. On Tele while she is resting in bed her HR drops to 35 bpm and in the 40's. Repeat EKG shows Bradycardia HR 45 bpm. Appears stable when compairing to ER EKG with some slight ST changes to V3-V6. Echocardiogram showed Left ventricular chamber dimension is normal. Left ventricular systolic function is normal, estimated at 65-70%. Left atrial chamber dimension is mildly enlarged. No significant valve lesions. Dr. He Cardiology evaluated the patient thought could be due to increased intracranial pressure if the patient had a mass. MRI was negative. She she is asymptomatic with bradycardia there is no further work up that needs to be completed. Will DC Tele Appreciate Cardiology's input. (4) Acute kidney injury: Code(s): N17.9 - Acute kidney failure, unspecified Status: Acute Assessment and Plan: Resolved after only 1 L of IV fluids given in the ER. (5) Weight loss: Code(s): R63.4 - Abnormal weight loss Status: Acute Assessment and Plan: Reports 40 lb wt loss. Hx of pulmonary nodules she never got worked up. CXR was unremarkable. CT Chest/Abd/ Pelvis was ordered and currently pending to evaluate further for underlying cancer or met dz patient does state she is depressed with her two brothers recently passing away. Reel Film Inspector added supplements Patient could also have myelodysplastic syndrome so will check CHENCHO testing, pending. Continue monitoring. (6) Continuous tobacco abuse: Code(s): Z72.0 - Tobacco use Status: Acute Assessment and Plan: She does not have any cravings for cigarettes at this time. She is determined to quit. Does not need Nicotine patch at this time. Educated patient on quitting for 3 mins Time Spent With Patient Time with patient: 25 - 35 minutes Subjective Date/time seen: 10/30/20 13:30 Interval history: Patient is 70 year old with history of narcotic abuse on Suboxone, peripheral neuropathy, and history of pulmonary nodules without further workup/evaluation in the past, who presented to the ER with symptoms of intermittent right sided facial tingling which goes down to her right shoulder and neck, with associated hearing loss, and feeling of being off balance. Initial vitals showed afebrile, HR 75 bpm, BP 123/80, O2 100% on RA. Initial labs showed elevated MCV, and lymphocytes on differential. Normal Coag panel. DAVID with Cr 1.20. Negative initial troponin. Normal B12 and Folic acid. Normal UA. Urine Tox showed Benzodiazapines and Cannabinoids. She was admitted into the hospital for further CVA work up, tele monitoring and evaluation for possible cancer with CXR with her symptoms of 40 lb wt loss, lack of appetite. Date of Service 10/30/20: She reports feeling better today. She walked well with PT/OT t
[2020-10-30] MEDS: AMITRIPTYLINE HCL 25 MG TABLET 50 MG PO (20:36)
[2020-10-31] VITALS (17 sets, daily range): BP systolic 87–121; BP diastolic 47–64; PULSE 83–128; RESP 16–20; TEMP 36.4–37.5; O2SAT 85–94
--- NOTE | 2020-10-31 05:34 | PC.NURSE ---
Physician Hopen notified that the patient had a temp of 100.7 and 99 this am, physician stated that she would review chart.
[2020-10-31] MEDS: ALBUTEROL SULFATE (*SP) AEROSOL 1 PUFF 2 PUFF INHALATION ×4 (08:18→21:22)
[2020-10-31] MEDS: ASPIRIN 325 MG TABLET PO (08:20)
[2020-10-31] MEDS: GABAPENTIN 300 MG CAPSULE 600 MG PO ×3 (08:20→16:27)
[2020-10-31 08:36] LABS: Lactate Dehydrogenase 362 U/L (313-618)
[2020-10-31 08:44] LABS: CRP 14.3 mg/dL (<1.0)
[2020-10-31 09:01] LABS: Alanine Aminotransferase 8 U/L (4-35); Albumin Level 3.3 g/dL (3.5-5.1); Alkaline Phosphatase 79 U/L (38-126); Aspartate Amino Transferase 17 U/L (14-36); Bilirubin,Total 0.5 mg/dL (0.2-1.3)
[2020-10-31 10:55] LABS: Hematocrit 42.1 % (37.0-47.0); Hemoglobin 13.6 g/dL (12.0-15.0); Mean Corpuscular HGB Conc 32.3 g/dl (32-36); Mean Corpuscular Hemoglobin 32.1 pg (26-34); Mean Corpuscular Volume 99.3 fl (80-100); Mean Platelet Volume 11.4 fl (7.4-10.4); Platelet Count Result 143 k/mm3 (150-375); Red Blood Count 4.24 M/mm3 (4.2-5.4); Red Cell Distribution Width 12.6 % (11.5-14.5); White Blood Count 10.7 K/mm3 (4.5-10.0)
[2020-10-31 11:01] LABS: Anion Gap 5 mmol/L (8-16); Blood Urea Nitrogen 9 mg/dL (7-17); Calcium 8.6 mg/dL (8.4-10.2); Carbon Dioxide 28 mmol/L (22-30); Chloride 100 mmol/L (98-107); Estimated CRCL calculation 40 ml/min; Estimated Glomerular Filt Rate > 60; Glucose 94 mg/dL (65-105); Potassium 4.1 mmol/L (3.4-5.0); Sodium 133 mmol/L (137-145)
[2020-10-31 11:15] LABS: Procalcitonin 0.6 ng/mL
--- NOTE | 2020-10-31 11:31 | ECG_ITS ---
Measurements Intervals [place] Rate: 96 P: 74 MD: 132 QRS: 52 QRSD: 73 T: 84 QT: 322 QTc: 407 Interpretive Statements SINUS RHYTHM INCOMPLETE RIGHT BUNDLE BRANCH BLOCK BASELINE ARTIFACT- I, II, III, AVR, AVL, AVF, V1-V6 BORDERLINE ECG Electronically Signed On 10-31-2020 19:21:15 CDT by Gage Williamson D.O.
[2020-10-31] MEDS: diazePAM (*CRX) 5 MG TABLET 2.5 MG PO (11:38)
[2020-10-31 11:49] LABS: Band Neutrophils Percent 19 % (0-6); Lymphocytes Absolute Manual 1.81 K/mm3 (1.1-4.5); Neutrophils Absolute Manual 8.88 K/mm3 (1.7-7.2); Neutrophils Percent Manual 64 % (46-73); Platelet Estimate Adequate (Adequate); Total Cells Counted 100
[2020-10-31] MEDS: ENOXAPARIN 40 MG/0.4 ML SYRINGE SUB-Q ×2 (12:59→21:23)
--- NOTE | 2020-10-31 13:30 | PM.IMPN ---
Progress Note: A&P Assessment and Plan (1) Altered mental state: Code(s): R41.82 - Altered mental status, unspecified Status: Acute Assessment and Plan: I was called by the patient's nurse around 2:00 p.m. about patient's altered mental status, increased somnolence, and found to have hypotension with a blood pressure of 87/47 and oxygen saturation 75% on room air. Patient was placed on 3 L of oxygen via nasal cannula with improvement of her oxygen saturation to 92%. Patient was given 250 cc IV fluid bolus with improvement of blood pressure 110/59. Will continue IV fluid hydration at 40 cc an hour which is her weight in kg. Patient received p.o. Valium 2.5 mg at 11:30 a.m. for her to undergo another MRI. She had the same exact dose of Valium 2 days ago for her 1st MRI and she did not have this type of mental status change. Could be from underlying infection verses medications vs other. Started on Broad Spectrum IV antibiotics at this time, treatment for possible PE with SQ Lovenox 40 mg Q12hrs Ordered blood cultures, urinalysis with reflux culture Continue monitoring. (2) Fever: Code(s): R50.9 - Fever, unspecified Status: Acute Assessment and Plan: Patient had a fever 100.7 overnight. Patient states she was asymptomatic with this and was and where the fever. Could be secondary to her sleeping on the heating pad. Further labs from this morning show she has new leukocytosis with a left shift, tachycardia at rest and 116 bpm and increased into the 130s with activity. Patient has no acute signs of an infection at this time but due to leukocytosis with a left shift, tachycardia, hypotension, elevated CRP, procalcitonin 0.6 showing sepsis is possible. Ordered blood cultures, urinalysis with reflux culture Will start on broad-spectrum antibiotics with IV cefepime and vancomycin Also concern for possible pulmonary embolism and CTA chest has been ordered and pending Started on Lovenox based on weight q.12hr until acute PE can be ruled out Start on IV fluid hydration Patient otherwise feeling well at this time without any acute concerns or issues. Patient reports only chronic pain at this time. (3) Leukocytosis: Code(s): D72.829 - Elevated white blood cell count, unspecified Status: Acute Assessment and Plan: See above (4) Tachycardia: Code(s): R00.0 - Tachycardia, unspecified Status: Acute Assessment and Plan: See above (5) Aphasia: Code(s): R47.01 - Aphasia Status: Acute Assessment and Plan: Concerning for TIA vs CVA vs mass vs met CA. Initial noncontrast CT concerning for old stroke verses mass. 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 No acute findings. Patient is still having symptoms of right-sided facial/ numbness tingling as well as hearing loss. Will order an MRI IAC w/out contrast due to symptoms to rule out schwannoma Continue monitoring. Continue Neuro checks Q shift. (6) Numbness and tingling of right side of face: Code(s): R20.0 - Anesthesia of skin; R20.2 - Paresthesia of skin Status: Acute Assessment and Plan: See under aphasia (7) Bradycardia: Code(s): R00.1 - Bradycardia, unspecified Status: Acute Assessment and Plan: Patients HR on EKG during ER visit was normal at 75 bpm. 10/29/20- On Tele while she is resting in bed her HR drops to 35 bpm and in the 40's. Repeat EKG shows Bradycardia HR 45 bpm. Appears stable when comparing to ER EKG with some slight ST changes to V3-V6. Echocardiogram showed Left ventricular chamber dimension is normal. Left ve
[2020-10-31 13:59] LABS: Influenza Control Positive
--- NOTE | 2020-10-31 14:20 | PC.NURSE ---
B/P 87/47 patient states feels sleepy, O2 sat 76%, O2 at 3l/nc place on patient, o2 sat up to 93%. Maria Isabel notified of change in condition, orders received. 1439 - IV NS bolus 250ml given. 1500 b/p 110/59., o2 sat at 89% on 3l, Maria Isabel notified. states if continues to be lethargic to hold CTA of abd until tomorrow.
[2020-10-31] MEDS: SODIUM CHLORIDE 0.9% IV 250 ML 999 ML IV CONT (14:39)
[2020-10-31] MEDS: SODIUM CHLORIDE 0.9% IV 1,000 ML 40 ML IV CONT (16:11)
[2020-10-31] MEDS: PANTOPRAZOLE SODIUM IV 40 MG VIAL IV PUSH (16:42)
[2020-10-31 16:51] LABS: Alveolar/Arterial O2 Gradient 155.8 mmHg; Base Excess ABG 3.4 mEq/l (+/-2.0); Carboxyhemoglobin 0.2 % THb (0-2.0); Fractional Inspired Oxygen 36 %; HCO3 ABG 28.7 mEq/l (22.0-26.0); Methemoglobin ABG 0.3 %THb (0-1.5); Oxygen Content ABG 16.1 %vol (16.0-22.0); Oxyhemoglobin 83.9 % THb (90.0-100.0); PCO2 ABG 46.5 mmHg (35.0-45.0); Reduced Hemoglobin 15.6 %THb (0-5.0); Total Hemoglobin 13.7 g/dL (12.0-18.0); pH ABG 7.409 (7.350-7.450)
[2020-10-31 17:09] LABS: Device NASAL CANNULA; Oxygen Saturation ABG 82.9 % (95.0-100.0); PO2 ABG 46.9 mmHg (80.0-100.0); Site Drawn RIGHT BRACHIAL
[2020-10-31 17:16] LABS: Lactic Acid Reflex 2.1 mmol/L (0.7-2.1)
--- NOTE | 2020-10-31 18:35 | PC.NURSE ---
Noted change on telemetry from SR/ST to Atrial [place], patient asymptomatic, lying quietly in bed, no c/o's. Denies pain or discomfort. Dr. Lemus notified, orders received.
--- NOTE | 2020-10-31 18:39 | ECG_ITS ---
Measurements Intervals [place] Rate: 114 P: 56 SC: 124 QRS: 38 QRSD: 72 T: 65 QT: 289 QTc: 399 Interpretive Statements SINUS TACHYCARDIA SUPRAVENTRICULAR BIGEMINY INCOMPLETE RIGHT BUNDLE BRANCH BLOCK BASELINE ARTIFACT- I, II, III, AVR, AVL, AVF, V1-V6 ABNORMAL ECG Electronically Signed On 10-31-2020 19:25:47 CDT by Gage Williamson D.O.
[2020-10-31 19:33] LABS: Add Urine Microscopic? YES; Appearance Urine Cloudy (Clear); Bacteria Urine Trace /hpf; Bilirubin Urine Negative (Negative); Blood Urine Negative (Negative); Color Urine Yellow (Yellow); Glucose Urine UA Negative (Negative); Ketones Urine Negative (Negative); Leukocyte Esterase Ur Trace LEU/UL (Negative); Nitrate Urine Negative (Negative); Protein Urine Negative (Negative); RBC Urine 0-2 /hpf (0-2); Squamous Epithelial Cell Urine Many /hpf (Few); Urobilinogen Urine Negative mg/dL (<2.0)
[2020-10-31 20:02] LABS: Reflex Lactic Acid Yes or No Add Lactic
[2020-10-31] MEDS: AMITRIPTYLINE HCL 25 MG TABLET 50 MG PO (21:22)
--- NOTE | 2020-10-31 21:23 | PC.NURSE ---
Gave report to Catalina in IMU prior to transfer. night meds given outside of home medication which looks like they ran out of. Covid swabbed. -AEW RN
[2020-11-01] VITALS (23 sets, daily range): BP systolic 88–167; BP diastolic 50–95; PULSE 72–117; RESP 12–20; TEMP 36.2–36.8; O2SAT 90–100
[2020-11-01 05:00] LABS: Hematocrit 38.8 % (37.0-47.0); Hemoglobin 12.6 g/dL (12.0-15.0); Immature Platelet Fraction Pct 5.9 % (0.9-11.2); Mean Corpuscular HGB Conc 32.5 g/dl (32-36); Mean Corpuscular Hemoglobin 31.5 pg (26-34); Platelet Count Result 110 k/mm3 (150-375); Red Cell Distribution Width 12.3 % (11.5-14.5); White Blood Count 6.4 K/mm3 (4.5-10.0)
[2020-11-01 05:38] LABS: Anion Gap 1 mmol/L (8-16); Blood Urea Nitrogen 8 mg/dL (7-17); CRP 25.1 mg/dL (<1.0); Calcium 8.4 mg/dL (8.4-10.2); Carbon Dioxide 31 mmol/L (22-30); Chloride 102 mmol/L (98-107); Estimated CRCL calculation 35 ml/min; Estimated Glomerular Filt Rate > 60; Glucose 103 mg/dL (65-105); Sodium 134 mmol/L (137-145)
[2020-11-01 05:50] LABS: Band Neutrophils Percent 19 % (0-6); Lymphocytes Absolute Manual 0.96 K/mm3 (1.1-4.5); Monocytes Absolute Manual 0.19 K/mm3 (0.1-0.90); Monocytes Percent Manual 3 % (3-9); Neutrophils Absolute Manual 5.24 K/mm3 (1.7-7.2); Neutrophils Percent Manual 63 % (46-73); Total Cells Counted 100
[2020-11-01 08:06] LABS: Alanine Aminotransferase 7 U/L (4-35); Albumin Level 3.4 g/dL (3.5-5.1); Alkaline Phosphatase 75 U/L (38-126); Aspartate Amino Transferase 16 U/L (14-36); Bilirubin,Total 0.5 mg/dL (0.2-1.3); Lactate Dehydrogenase 293 U/L (313-618)
[2020-11-01] MEDS: ALBUTEROL SULFATE (*SP) AEROSOL 1 PUFF 2 PUFF INHALATION ×2 (08:16→12:04)
[2020-11-01] MEDS: ENOXAPARIN 40 MG/0.4 ML SYRINGE SUB-Q (08:16)
[2020-11-01] MEDS: ASPIRIN 325 MG TABLET PO (08:16)
[2020-11-01] MEDS: GABAPENTIN 300 MG CAPSULE 600 MG PO ×3 (08:16→18:32)
[2020-11-01] MEDS: PANTOPRAZOLE SODIUM IV 40 MG VIAL IV PUSH ×2 (08:17→20:09)
--- NOTE | 2020-11-01 12:25 | PCDIET ---
Nutrition Follow-Up Complete: Inadequate oral food and beverage intake related to aphasia as evidence by poor PO intake and patient reported unintentional weight loss of 40 pounds in the last two years. Meet estimated nutritional needs. Goal:Progressing towards goal. Continue goal. Pt current nutrition is Heart Healthy + Ensure Compact BID Nutrition recommendation: Recommend diet liberalization to regular to improve intake and allow for healthy fats (MD [place]) Last recorded weight is 39 kg, recommend updated wt Bowel Motility: 10/31 Labs Reviewed: Albumin 3.4, Na 134, C Reactive 25.1 Meds Noted:Normal Saline, Vancomycin, Protonix Additional Notes: Pt with average intake of 48% over the last three meals. PO intakes still small and stretched out. Diet will be updated to regular to help improve intake. Ensure compact offered BID to provide an additional 440kcals and 18g protein. We will continue to monitor for updated wt and PO intake every five days.
--- NOTE | 2020-11-01 12:44 | PM.IMPN ---
Progress Note: A&P Assessment and Plan (1) Altered mental state: Code(s): R41.82 - Altered mental status, unspecified Status: Acute Assessment and Plan: 10/31/20- I was called by the patient's nurse around 2:00 p.m. about patient's altered mental status, increased somnolence, and found to have hypotension with a blood pressure of 87/47 and oxygen saturation 75% on room air. Patient was placed on 3 L of oxygen via nasal cannula with improvement of her oxygen saturation to 92%. Patient was given 250 cc IV fluid bolus with improvement of blood pressure 110/59. Will continue IV fluid hydration at 40 cc an hour which is her weight in kg. Patient received p.o. Valium 2.5 mg at 11:30 a.m. for her to undergo another MRI. She had the same exact dose of Valium 2 days ago for her 1st MRI and she did not have this type of mental status change. Could be from underlying infection verses medications vs other. CXR shows pneumonia could be infectious vs viral pending COVID test, currently under isolation Continue on Broad Spectrum IV antibiotics at this time with IV cefepime and vancomycin Also concern for possible pulmonary embolism and CTA chest has been ordered and pending. Continue treatment for possible PE with SQ Lovenox 40 mg Q12hrs UA appears to be contaminant. Pending blood cultures Start on light IV fluid hydration 11/01/20- Patient is feeling better at this time. A&Ox4. CXR shows Continue monitoring. (2) Acute respiratory failure with hypoxia: Code(s): J96.01 - Acute respiratory failure with hypoxia Status: Acute Assessment and Plan: 10/31/20 patient is found to be hypoxic and placed on 4 L via nasal cannula. ABG was ordered which showed patient was still hypoxic and was placed on 8 L via high-flow nasal cannula. Could be from Covid versus pneumonia. Patient is resting comfortably on 6 L of oxygen at this time and still weaning per the nurse. Continue IV antibiotics Duonebs ordered Continue monitoring. Wean as tolerated. Respiratory monitoring. (3) Pneumonia: Code(s): J18.9 - Pneumonia, unspecified organism Status: Acute Assessment and Plan: Could be from aspiration versus community versus hospital verses COVID IV antibiotics, DuoNeb treatments Pending COVID swab testing Blood cultures pending Continue monitoring. (4) Fever: Code(s): R50.9 - Fever, unspecified Status: Acute Assessment and Plan: See AMS (5) Leukocytosis: Code(s): D72.829 - Elevated white blood cell count, unspecified Status: Acute Assessment and Plan: See above (6) Tachycardia: Code(s): R00.0 - Tachycardia, unspecified Status: Acute Assessment and Plan: See above (7) Aphasia: Code(s): R47.01 - Aphasia Status: Acute Assessment and Plan: Concerning for TIA vs CVA vs mass vs met CA. Initial noncontrast CT concerning for old stroke verses mass. 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 No acute findings. Patient is still having symptoms of right-sided facial/ numbness tingling as well as hearing loss. MRI IAC w/out contrast was normal. Unsure of cause of numbness, tingling to right side of face and episode of Aphasia. Cerumen impaction of right ear, will give medication and see if it helps. Continue monitoring. Continue Neuro checks Q shift. (8) Numbness and tingling of right side of face: Code(s): R20.0 - Anesthesia of skin; R20.2 - Paresthesia of skin Status: Acute Assessment and Plan: See under aphasia
[2020-11-01 13:55] LABS: SARS-CoV-2 RNA PCR Negative
[2020-11-01] MEDS: IPRATROPIUM BR 0.02% INH SOLN 0.5 MG/2.5 ML VIAL INHALATION ×2 (14:05→20:55)
[2020-11-01] MEDS: ALBUTEROL SULFATE NEB 2.5 MG/0.5 ML INH INHALATION ×2 (14:05→20:55)
[2020-11-01] MEDS: SODIUM CHLORIDE 0.9% IV 250 ML 500 ML IV CONT (16:30)
[2020-11-01] MEDS: SODIUM CHLORIDE 0.9% IV 1,000 ML 40 ML IV CONT (18:26)
[2020-11-01] MEDS: CARBAMIDE PEROXIDE 6.5% OT SOLN 15 ML BTL 5 DROP EACH EAR (18:33)
[2020-11-01] MEDS: AMITRIPTYLINE HCL 25 MG TABLET 50 MG PO (20:09)
[2020-11-02] VITALS (24 sets, daily range): BP systolic 100–114; BP diastolic 45–69; PULSE 66–93; RESP 12–20; TEMP 35.9–36.6; O2SAT 90–97
[2020-11-02] MEDS: IPRATROPIUM BR 0.02% INH SOLN 0.5 MG/2.5 ML VIAL INHALATION ×4 (02:37→20:33)
[2020-11-02] MEDS: ALBUTEROL SULFATE NEB 2.5 MG/0.5 ML INH INHALATION ×4 (02:38→20:33)
[2020-11-02 05:20] LABS: Basophils Percent Auto 0.2 % (0.2-1.2); Eosinophils Absolute Auto 0.1 K/mm3 (0-0.3); Hematocrit 34.1 % (37.0-47.0); Hemoglobin 10.7 g/dL (12.0-15.0); Immature Granulocyte Absolute 0.02 K/mm3 (0.00-0.031); Immature Granulocyte Percent A 0.4 % (0-0.5); Immature Platelet Fraction Pct 6.3 % (0.9-11.2); Lymphocytes Absolute Auto 0.91 K/mm3 (0.9-3.2); Lymphocytes Percent Auto 17.9 % (18.3-44.2); Mean Corpuscular HGB Conc 31.4 g/dl (32-36); Mean Corpuscular Hemoglobin 32.1 pg (26-34); Mean Corpuscular Volume 102.4 fl (80-100); Mean Platelet Volume 11.7 fl (7.4-10.4); Monocytes Absolute Auto 0.3 K/mm3 (0.1-0.6); Monocytes Percent Auto 5.3 % (2.6-8.5); Neutrophils Absolute Auto 3.8 K/mm3 (1.3-6.7); Neutrophils Percent Auto 75.2 % (45.5-73.1); Platelet Count Result 104 k/mm3 (150-375); Red Blood Count 3.33 M/mm3 (4.2-5.4); Red Cell Distribution Width 12.6 % (11.5-14.5); White Blood Count 5.1 K/mm3 (4.5-10.0)
[2020-11-02 05:58] LABS: Anion Gap 1 mmol/L (8-16); Blood Urea Nitrogen 10 mg/dL (7-17); Calcium 8.4 mg/dL (8.4-10.2); Carbon Dioxide 32 mmol/L (22-30); Chloride 106 mmol/L (98-107); Estimated CRCL calculation 35 ml/min; Estimated Glomerular Filt Rate > 60; Glucose 72 mg/dL (65-105); Sodium 139 mmol/L (137-145)
--- NOTE | 2020-11-02 08:30 | WPDCDIQUERY2 ---
CDI Query Clarification Request -10/31 progress note: Patient has no acute signs of an infection at this time but due to leukocytosis with a left shift, tachycardia, hypotension, elevated CRP, procalcitonin 0.6 showing sepsis is possible. -10/31 ABG's with pO2 46.9 on O2 at 4L, altered mental status documented -11/01 progress note telemetry showing sinus tachycardia in the 110s that morning, then labs were ordered at 0800 showing leukocytosis with left shift, elevated CRP, procalcitonin. Believed she should have aspirated that evening or at breakfast that morning. -Pneumonia, could be from aspiration versus community versus hospital verses COVID documented. Please clarify if sepsis was ruled in or ruled out.
[2020-11-02] MEDS: ENOXAPARIN 40 MG/0.4 ML SYRINGE SUB-Q (09:04)
[2020-11-02] MEDS: PANTOPRAZOLE SODIUM IV 40 MG VIAL IV PUSH ×2 (09:06→20:42)
[2020-11-02] MEDS: ASPIRIN 325 MG TABLET PO (09:06)
[2020-11-02] MEDS: GABAPENTIN 300 MG CAPSULE 600 MG PO ×3 (09:06→17:32)
[2020-11-02] MEDS: CARBAMIDE PEROXIDE 6.5% OT SOLN 15 ML BTL 5 DROP EACH EAR ×2 (09:07→17:31)
--- NOTE | 2020-11-02 10:59 | P.PNIM_ITS ---
Progress Note: A&P Assessment and Plan (1) Altered mental state: Qualifiers: Altered mental status type: unspecified Qualified Code(s): R41.82 - Altered mental status, unspecified Code(s): R41.82 - Altered mental status, unspecified Status: Resolved Assessment and Plan: * Period of altered mental status 5/ afternoon with increased somnolence, hypotension BP 87/47, O2 saturation 75% on room air. She has been treated with supplemental oxygen and IV fluid hydration. * Mentation appears to be back at baseline. Pneumonia, acute respiratory failure with hypoxia may have contributed. * MRI brain shows evidence of small old infarction, no acute intracranial findings. UDS on arrival was positive for benzos and cannabinoids. * Resolved. Stable, transfer out of IMU. Continue to monitor. (2) Pneumonia: Qualifiers: Pneumonia type: due to unspecified organism Laterality: bilateral Lung location: unspecified part of lung Qualified Code(s): J18.9 - Pneumonia, un specified organism Code(s): J18.9 - Pneumonia, unspecified organism Status: Acute Assessment and Plan: * Most likely aspiration given her history and imaging; less likely community- acquired vs. Hospital-acquired. COVID negative by PCR. Influenza negative. Order pneumococcal and Legionella urine antigens. * Continue IV antibiotics with vancomycin and cefepime (day 3). Continue nebulized bronchodilator therapy and supplemental O2. * NPO pending bedside ST evaluation, modified barium swallow. Appreciate ST recommendations. (3) Acute respiratory failure with hypoxia: Code(s): J96.01 - Acute respiratory failure with hypoxia Status: Acute Assessment and Plan: * COVID negative by PCR. Suspect related to aspiration pneumonia. * Improving, tolerating 1 L/min nasal cannula today. Continue supplemental oxygen and wean as tolerated to keep O2 saturations > 90%. Continue treatment for pneumonia outlined above. (4) Sepsis: Qualifiers: Sepsis type: sepsis due to unspecified organism Sepsis acute organ dysfunction status: without acute organ dysfunction Qualified Code(s): A41.9 - Sepsis, unspecified organism Code(s): A41.9 - Sepsis, unspecified organism Status: Resolved Assessment and Plan: * Criteria met with mild leukocytosis, mild fever T-max 100.7? F, tachycardia; now resolved. Suspected source is above. * Continue IV antibiotic therapy as outlined above. Blood cultures pending with no growth to date. Monitor vital signs and urine output. (5) Aphasia: Code(s): R47.01 - Aphasia Status: Acute Assessment and Plan: * Patient presented with right-sided facial numbness/tingling as well as hearing loss concerning for TIA vs CVA vs mass vs met CA. Imaging detailed below; MRI brain shows small old frontal lobe infarction without acute intracranial findings. * Etiology unclear. Substance use, anxiety could be contributing. * Cerumen impaction of right ear, continue treatment. * Continue monitoring. Continue Neuro checks Q shift. (6) Numbness and tingling of right side of face: Code(s): R20.0 - Anesthesia of skin; R20.2 - Paresthesia of skin Status: Acute Assessment and Plan: * See above. (7) Acute kidney injury: Code(s): N17.9 - Acute kidney failure, u
--- NOTE | 2020-11-02 10:59 | PM.IMPN ---
Progress Note: A&P Assessment and Plan (1) Altered mental state: Qualifiers: Altered mental status type: unspecified Qualified Code(s): R41.82 - Altered mental status, unspecified Code(s): R41.82 - Altered mental status, unspecified Status: Resolved Assessment and Plan: Period of altered mental status / afternoon with increased somnolence, hypotension BP 87/47, O2 saturation 75% on room air. She has been treated with supplemental oxygen and IV fluid hydration. Mentation appears to be back at baseline. Pneumonia, acute respiratory failure with hypoxia may have contributed. MRI brain shows evidence of small old infarction, no acute intracranial findings. UDS on arrival was positive for benzos and cannabinoids. Resolved. Stable, transfer out of IMU. Continue to monitor. (2) Pneumonia: Qualifiers: Pneumonia type: due to unspecified organism Laterality: bilateral Lung location: unspecified part of lung Qualified Code(s): J18.9 - Pneumonia, unspecified organism Code(s): J18.9 - Pneumonia, unspecified organism Status: Acute Assessment and Plan: Most likely aspiration given her history and imaging; less likely community-acquired vs. Hospital-acquired. COVID negative by PCR. Influenza negative. Order pneumococcal and Legionella urine antigens. Continue IV antibiotics with vancomycin and cefepime (day 3). Continue nebulized bronchodilator therapy and supplemental O2. NPO pending bedside ST evaluation, modified barium swallow. Appreciate ST recommendations. (3) Acute respiratory failure with hypoxia: Code(s): J96.01 - Acute respiratory failure with hypoxia Status: Acute Assessment and Plan: COVID negative by PCR. Suspect related to aspiration pneumonia. Improving, tolerating 1 L/min nasal cannula today. Continue supplemental oxygen and wean as tolerated to keep O2 saturations > 90%. Continue treatment for pneumonia outlined above. (4) Sepsis: Qualifiers: Sepsis type: sepsis due to unspecified organism Sepsis acute organ dysfunction status: without acute organ dysfunction Qualified Code(s): A41.9 - Sepsis, unspecified organism Code(s): A41.9 - Sepsis, unspecified organism Status: Resolved Assessment and Plan: Criteria met with mild leukocytosis, mild fever T-max 100.7? F, tachycardia; now resolved. Suspected source is above. Continue IV antibiotic therapy as outlined above. Blood cultures pending with no growth to date. Monitor vital signs and urine output. (5) Aphasia: Code(s): R47.01 - Aphasia Status: Acute Assessment and Plan: Patient presented with right-sided facial numbness/tingling as well as hearing loss concerning for TIA vs CVA vs mass vs met CA. Imaging detailed below; MRI brain shows small old frontal lobe infarction without acute intracranial findings. Etiology unclear. Substance use, anxiety could be contributing. Cerumen impaction of right ear, continue treatment. Continue monitoring. Continue Neuro checks Q shift. (6) Numbness and tingling of right side of face: Code(s): R20.0 - Anesthesia of skin; R20.2 - Paresthesia of skin Status: Acute Assessment and Plan: See above. (7) Acute kidney injury: Code(s): N17.9 - Acute kidney failure, unspecified Status: Resolved Assessment and Plan: Resolved, renal function stable - continue to monitor. Cr 1.2 on arrival, improved and back at baseline after 1 L IV fluids given in the ED. Monitor renal function. (8) Weight loss: Code(s): R63.4 - Abnormal weight loss Status: Acute
--- NOTE | 2020-11-02 13:51 | PCSTNOTE ---
Please refer to the Modified Barium Swallow Evaluation in the EMR.
--- NOTE | 2020-11-02 14:11 | PC.NURSE ---
orders to transfer to 3rd [place] [facility]/tele- report given to Stephy RN- daughter in room- pt and daughter updated on swallowing results- Moved to room 344 via bed accompanied by staff- personal belongings with pt
[2020-11-02] MEDS: AMITRIPTYLINE HCL 25 MG TABLET 50 MG PO (20:42)
[2020-11-02] MEDS: SODIUM CHLORIDE 0.9% IV 1,000 ML 40 ML IV CONT (23:05)
[2020-11-02] MEDS: NICOTINE (*PBKC) 14 MG PATCH 1 PATCH TRANSDERM (23:06)
[2020-11-03] VITALS (13 sets, daily range): BP systolic 110–123; BP diastolic 48–60; PULSE 65–95; RESP 14–20; TEMP 36.1–36.6; O2SAT 90–95
[2020-11-03] MEDS: IPRATROPIUM BR 0.02% INH SOLN 0.5 MG/2.5 ML VIAL INHALATION ×2 (02:32→13:45)
[2020-11-03] MEDS: ALBUTEROL SULFATE NEB 2.5 MG/0.5 ML INH INHALATION ×2 (02:32→13:45)
[2020-11-03 05:52] LABS: Basophils Percent Auto 0.2 % (0.2-1.2); Eosinophils Absolute Auto 0.1 K/mm3 (0-0.3); Eosinophils Percent Auto 1.1 % (0-4.4); Hemoglobin 10.5 g/dL (12.0-15.0); Immature Granulocyte Absolute 0.03 K/mm3 (0.00-0.031); Immature Granulocyte Percent A 0.7 % (0-0.5); Immature Platelet Fraction Pct 4.6 % (0.9-11.2); Lymphocytes Absolute Auto 1.05 K/mm3 (0.9-3.2); Lymphocytes Percent Auto 23.6 % (18.3-44.2); Mean Corpuscular HGB Conc 32.8 g/dl (32-36); Mean Corpuscular Hemoglobin 32.4 pg (26-34); Mean Corpuscular Volume 98.8 fl (80-100); Mean Platelet Volume 11.3 fl (7.4-10.4); Monocytes Absolute Auto 0.4 K/mm3 (0.1-0.6); Monocytes Percent Auto 7.9 % (2.6-8.5); Neutrophils Percent Auto 66.5 % (45.5-73.1); Platelet Count Result 122 k/mm3 (150-375); Red Blood Count 3.24 M/mm3 (4.2-5.4); Red Cell Distribution Width 12.4 % (11.5-14.5); White Blood Count 4.5 K/mm3 (4.5-10.0)
[2020-11-03 06:01] LABS: Anion Gap 0 mmol/L (8-16); Blood Urea Nitrogen 9 mg/dL (7-17); Calcium 8.2 mg/dL (8.4-10.2); Carbon Dioxide 32 mmol/L (22-30); Chloride 105 mmol/L (98-107); Estimated CRCL calculation 35 ml/min; Estimated Glomerular Filt Rate > 60; Glucose 85 mg/dL (65-105); Potassium 3.4 mmol/L (3.4-5.0); Sodium 137 mmol/L (137-145)
[2020-11-03 06:22] LABS: Iron 29 ug/dL (37-170)
[2020-11-03 06:32] LABS: Percent Iron Saturation 15 % (20-50)
[2020-11-03] MEDS: PANTOPRAZOLE SODIUM IV 40 MG VIAL IV PUSH (08:27)
[2020-11-03] MEDS: GABAPENTIN 300 MG CAPSULE 600 MG PO (08:27)
[2020-11-03] MEDS: ASPIRIN 325 MG TABLET PO (08:27)
[2020-11-03] MEDS: CARBAMIDE PEROXIDE 6.5% OT SOLN 15 ML BTL 5 DROP EACH EAR (08:28)
[2020-11-03] MEDS: ENOXAPARIN 40 MG/0.4 ML SYRINGE SUB-Q (08:28)
[2020-11-03] MEDS: NICOTINE (*PBKC) 14 MG PATCH 1 PATCH TRANSDERM (08:29)
[2020-11-03] MEDS: POTASSIUM CHLORIDE 20 MEQ TABLET PO (09:46)
--- NOTE | 2020-11-03 12:24 | PM.DS ---
DS: Admitting Diagnosis Admitting Diagnosis Admitting Diagnosis: See above. DS: Discharge Diagnosis Discharge Diagnosis (1) Altered mental state: Qualifiers: Altered mental status type: unspecified Qualified Code(s): R41.82 - Altered mental status, unspecified Code(s): R41.82 - Altered mental status, unspecified Status: Resolved Assessment and Plan: Date of Admission 10/28/20 Date of Discharge 11/03/20 Ms. Sanchez is a 70yo F with history of tobacco use who presented to the ED for evaluation of right sided facial and R arm paresthesia and weakness that had been occurring on and off over the last few weeks. MRI brain demonstrated small old infarction, no acute intracranial findings. Urine drug screen positive for benzodiazepines and cannabinoids. While admitted, 10/31 she had an episode of altered mental status with increased somnolence, hypotension BP 87/47, O2 saturation 75% on room air. She was treated with supplemental oxygen and IV fluid hydration. Her mentation returned to baseline however it appeared she had developed aspiration pneumonia. She was treated with IV antibiotics and breathing treatments. Patient admitted she did have difficulty swallowing larger foods at times. Speech therapy evaluated patient and she underwent modified barium swallow. Patient aspirated all consistences. Patient was educated at length her risk for continued aspiration with oral feedings. She declines feeding tube or other alternate route of nutrition. Speech therapy recommends her safest diet will be minced moist foods with mildly thickened liquids although will certainly not prevent aspiration entirely. Patient verbalizes understanding. She improved with IV antibiotics and was ultimately weaned off supplemental O2, tolerating room air with adequate oxygen saturations prior to discharge. Patient is eager for discharge today. She is educated on smoking cessation and encouraged to follow up with her primary care provider in 1 week. She is hemodynamically stable for discharge today. (2) Pneumonia: Qualifiers: Pneumonia type: due to unspecified organism Laterality: bilateral Lung location: unspecified part of lung Qualified Code(s): J18.9 - Pneumonia, unspecified organism Code(s): J18.9 - Pneumonia, unspecified organism Status: Acute Assessment and Plan: Most likely aspiration given her history and imaging; less likely community-acquired vs. Hospital-acquired. COVID negative by PCR. Influenza negative. Treated with 4 days IV antibiotics with vancomycin and cefepime and nebulized bronchodilator therapy; discharged with oral augmentin to complete the course. Modified barium swallow performed - noted she aspirated with all consistencies, see above. Continue minced moist/mildly thickened liquids. Unsure if patient will comply after discharge despite education. (3) Acute respiratory failure with hypoxia: Code(s): J96.01 - Acute respiratory failure with hypoxia Status: Acute Assessment and Plan: COVID negative by PCR. Suspect related to aspiration pneumonia. Resolved. (4) Sepsis: Qualifiers: Sepsis type: sepsis due to unspecified organism Sepsis acute organ dysfunction status: without acute organ dysfunction Qualified Code(s): A41.9 - Sepsis, unspecified organism Code(s): A41.9 - Sepsis, unspecified organism Status: Resolved Assessment and Plan: Criteria met with mild leukocytosis, mild fever T-max 100.7? F, tachycardia; now resolved. Suspected source is above. (5) Aphasia: Code(s): R47.01 - Aphasia Status: Acute Assessment and Plan: Patient presented with right-sided facial numbness/tingling as well as hearing loss concerning for TIA vs CVA vs mass vs m
--- NOTE | 2020-11-03 13:48 | PCRCNOTE ---
patient was with speech therapy and unable to do breathing tx
[2020-11-04 16:55] LABS: Pneumococcal Antigen Urine Not Detected (Not Detected)
[2020-11-06 07:56] LABS: Legionella pneumophila Ag Ur Not Detected (Not Detected)
[2020-11-20 16:14] LABS: CALR Exon 9 Mutation Not Detected (Not Detected); CSF3R Exon 14/17 Mutation Not Detected (Not Detected); Clinical Indication Not Provided; JAK2 Exon 12 Mutation Not Detected (Not Detected); JAK2 V617F Mutation Not Detected (Not Detected); MPL Exon 10 Mutation Not Detected (Not Detected); Specimen Source Blood
== END 2020-11-03 15:05 | disposition home or self-care (01) | DRG 871 ==
LOC: ANHED 23:30 → ANH3MEDSUR 10-29 00:09 → ANHIMU 10-31 21:12 → ANH3MED 11-03 01:34 → ANHIMU 11-04 12:05
PROVIDERS: Emergency Medicine Emergency Medical Services; Physician Assistant; Admitting Provider Internal Medicine; Emergency Provider Emergency Medicine; PCP Internal Medicine; Visit Provider Physician Assistant
DX: A41.9 Sepsis, unspecified organism (principal); J96.01 Acute respiratory failure with hypoxia; J69.0 Pneumonitis due to inhalation of food and vomit; N17.9 Acute kidney failure, unspecified; R47.01 Aphasia; Z68.1 Body mass index [BMI] 19.9 or less, adult; R63.4 Abnormal weight loss; J44.9 Chronic obstructive pulmonary disease, unspecified; Z20.822 Contact with and (suspected) exposure to COVID-19; R41.82 Altered mental status, unspecified; R00.1 Bradycardia, unspecified; F17.210 Nicotine dependence, cigarettes, uncomplicated; R20.2 Paresthesia of skin; G89.4 Chronic pain syndrome; G62.9 Polyneuropathy, unspecified; R39.15 Urgency of urination; I25.2 Old myocardial infarction; Z86.19 Personal history of other infectious and parasitic diseases; Z79.899 Other long term (current) drug therapy
CPT/HCPCS: 36415; 36600; 70450; 70496; 70498; 70551; 70553; 71045; 71046; 71250; 71275; 74176; 80048; 80053; 80076; 80307; 81001; 81003; 81219; 81270; 81402; 81403; 81479; 82375; 82607; 82728; 82746; 82805; 82948; 83050; 83540; 83550; 83605; 83615; 83735; 84145; 84484; 85025; 85027; 85055; 85610; 85730; 86140; 86703; 87040; 87449; 87804; 87899; 92526; 92610; 92611; 93005; 93306; 94618; 94640; 96360; 96361; 96372; 96374; 96375; 97110; 97116; 97161; 97165; 97530; 97535; 99285; A9270; A9577; C9113; C9803; G0378; G0432; J0692; J1650; J3370; J7030; J7050; J7120; Q9967; U0003; U0005

== ENCOUNTER 2020-11-30 20:38 | Emergency (ER) | payer MEDICARE, MEDICAID, SELFPAY ==
--- NOTE | ~2020-11-30 | CT_ITS ---
EXAMINATION: CT brain wo con DATE: 11/30/2020 21:21 INDICATION: Headache. History of stroke in September 2020 TECHNIQUE: Computed tomography (CT) of the head was performed without intravenous contrast. The mA wa s adjusted according to patient size. Iterative reconstruction technique was employed. Exam dose: 60 5.33 mGy-cm total exam DLP. COMPARISON: 10/31/2020 MR brain 10/28/2020 CT brain FINDINGS: Chronic right frontal cerebrovascular infarct. No intracranial mass lesion or hemorrhage or recent cerebrovascular accident is evident. No midline s hift or mass effect. Normal ventricular size. Prominent bilateral carotid siphon internal carotid artery calcifications are noted. No subdural or epidural hematoma is detected. No fracture or bone destruction of the cranial vault. Included paranasal sinuses and the mastoid air cells are normally developed and aerated. IMPRESSION: Chronic right frontal cerebrovascular accident. No acute finding or significant change since 10/28/2020 Reviewed, dictated and finalized at [facility]. Reviewed, dictated and finalized at [facility].
[2020-11-30 20:59] VITALS: BP 115/75; PULSE 79; RESP 18; TEMP 36.4; O2SAT 97
[2020-11-30 21:17] LABS: Basophils Percent Auto 0.4 % (0.2-1.2); Eosinophils Absolute Auto 0.7 K/mm3 (0-0.3); Eosinophils Percent Auto 10.4 % (0-4.4); Hematocrit 43.5 % (37.0-47.0); Hemoglobin 13.6 g/dL (12.0-15.0); Immature Granulocyte Absolute 0.01 K/mm3 (0.00-0.031); Immature Granulocyte Percent A 0.1 % (0-0.5); Lymphocytes Absolute Auto 2.65 K/mm3 (0.9-3.2); Lymphocytes Percent Auto 39.6 % (18.3-44.2); Mean Corpuscular HGB Conc 31.3 g/dl (32-36); Mean Corpuscular Hemoglobin 31.4 pg (26-34); Mean Corpuscular Volume 100.5 fl (80-100); Mean Platelet Volume 10.5 fl (7.4-10.4); Monocytes Absolute Auto 0.4 K/mm3 (0.1-0.6); Monocytes Percent Auto 5.8 % (2.6-8.5); Neutrophils Absolute Auto 2.9 K/mm3 (1.3-6.7); Neutrophils Percent Auto 43.7 % (45.5-73.1); Platelet Count Result 180 k/mm3 (150-375); Red Blood Count 4.33 M/mm3 (4.2-5.4); Red Cell Distribution Width 12.8 % (11.5-14.5); White Blood Count 6.7 K/mm3 (4.5-10.0)
[2020-11-30 21:26] LABS: Alanine Aminotransferase 13 U/L (4-35); Albumin Level 4.3 g/dL (3.5-5.1); Alkaline Phosphatase 108 U/L (38-126); Anion Gap 10 mmol/L (8-16); Aspartate Amino Transferase 28 U/L (14-36); Bilirubin,Total 0.1 mg/dL (0.2-1.3); Blood Urea Nitrogen 10 mg/dL (7-17); Calcium 9.3 mg/dL (8.4-10.2); Carbon Dioxide 26 mmol/L (22-30); Chloride 102 mmol/L (98-107); Estimated CRCL calculation 39 ml/min; Estimated Glomerular Filt Rate > 60; Glucose 95 mg/dL (65-105); Potassium 3.7 mmol/L (3.4-5.0); Sodium 138 mmol/L (137-145)
[2020-11-30 21:28] LABS: INR 0.9; Prothrombin Time 12.4 Seconds (11.1-14.7)
[2020-11-30 21:29] LABS: Partial Thromboplastin Time 26.4 SECONDS (22.3-36.8)
--- NOTE | 2020-11-30 23:30 | PC.NURSE ---
First call for room. No answer.
[2020-12-01 00:43] VITALS: BP 135/78; PULSE 72; RESP 12; O2SAT 97
--- NOTE | 2020-12-01 01:11 | ED.GENADULT ---
HPI - General Adult General Chief complaint: Unspecified Stated complaint: right side head pain Time Seen by Provider: 12/01/20 01:10 Source: patient and RN notes reviewed Mode of arrival: ambulatory Limitations: no limitations History of Present Illness HPI narrative: 70 years old white female presents to the ED with weird feeling, numbness at the right face since she been diagnosed of a stroke August 2020. Patient is telling me she came today because she is so concerned because the symptom does not go anywhere. Patient denies any focal weakness, headache, nausea, vomiting, fever, chills, chest pain, shortness of breath. Patient lives with her daughter, been vaccinated for COVID-19. Current patient on speech therapy and physical therapy Related Data Home Medications Medication Instructions Recorded Confirmed buprenorphine-naloxone 1 film SUBLINGUAL BID 03/02/20 10/29/20 gabapentin 600 mg PO TID 03/02/20 10/29/20 amitriptyline 50 mg PO HS 10/29/20 10/29/20 Allergies Allergy/AdvReac Type Severity Reaction Status Date / Time codeine Allergy Unknown swelling Verified 12/01/20 00:39 of hands Review of Systems Review of Systems: Narrative: CONSTITUTIONAL: Denies fever, chills, or sweats. EYES: Denies visual changes, redness, or discharge. ENT: Denies rhinorrhea, congestion, sore throat, or otalgia. CARDIOVASCULAR: Denies chest pain, palpitations, or edema. RESPIRATORY: Denies cough or dyspnea. GASTROINTESTINAL: Denies abdominal pain, nausea, vomiting, or diarrhea. GENITOURINARY: Denies dysuria or hematuria. SKIN: Denies rash or itching. MUSCULOSKELETAL: Denies back pain, joint pain, or myalgia. NEUROLOGIC: Denies headache, numbness, or weakness. PSYCHIATRIC: Denies anxiety or depression. [facility] Past Medical History Medical History Chronic back pain Continuous tobacco abuse COPD (chronic obstructive pulmonary disease) Hepatitis C virus infection cured after antiviral drug therapy Lung nodules Noted on CT from March 2020 with 4.5 mm right upper lobe and 3 mm left upper lobe with nodule Myocardial infarct 2013 Neuropathy Surgical History Surgical History History of appendectomy History of cardiac catheterization (~2012) History of colon resection (~2004) For uncertain reason History of colonoscopy with polypectomy (~2016) History of total hysterectomy with bilateral salpingo-oophorectomy (BSO) Hx of cholecystectomy Family History Family History Sibling Lung cancer July 2020 Sibling Lung cancer 2nd brother just recently diagnosed with lung cancer August 2020 Social History Social History Social History: The patient lives at home with her daughter and granddaughter. She has several other children as well. 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 She started smoking at age 15. She has smoked as much as a pack of cigarettes per day but has cut back to 1/3 of a pack per day. She denies any alcohol use or illicit substance use. Primary care physician: Dr. Daljit Walters Code status: Full code Surrogate decision maker: Becca Ruma (daughter) Smoking packs per day: 1 Smoking cigarettes per day: 20.0 Years smoked: 55 Smoking pack-years: 55.00 Smoking status: Current every day smoker Tobacco type: cigarettes Second hand tobacco smoke exposure: No Additional smoking assessment comments: 1 pack every 3 days Alcohol intake: never Substance use: current Substance use type: marijuana Gender identity (if verbalized by the patient): Female Spiritual care concerns: No Exam Narrative: Exam Narrative: General appearance: Well-developed, well-nourished Skin: Normal color Head: N
[2020-12-01 01:40] VITALS: BP 126/77; PULSE 81; RESP 16; O2SAT 98
== END 2020-12-01 01:40 | disposition home or self-care (01) ==
PROVIDERS: Emergency Provider Emergency Medicine; PCP Internal Medicine
DX: R20.2 Paresthesia of skin (principal); I69.998 Other sequelae following unspecified cerebrovascular disease; F17.210 Nicotine dependence, cigarettes, uncomplicated; J44.9 Chronic obstructive pulmonary disease, unspecified; I25.10 Atherosclerotic heart disease of native coronary artery without angina pectoris; R91.8 Other nonspecific abnormal finding of lung field; Z86.19 Personal history of other infectious and parasitic diseases; I25.2 Old myocardial infarction; G62.9 Polyneuropathy, unspecified; Z90.49 Acquired absence of other specified parts of digestive tract
CPT/HCPCS: 36415; 70450; 80053; 85025; 85610; 85730; 99284

== ENCOUNTER 2020-12-23 14:30 | Outpatient (RCR) | payer MEDICARE, MEDICAID, SELFPAY ==
--- NOTE | 2020-12-01 14:56 | STOPEVAL ---
SPEECH THERAPY INITIAL EVALUATION: Thank you for referring Morena Sanchez to [facility].? The patient is scheduled to be seen for speech therapy?2x/week for 4 weeks. Please review, sign, date and return this plan of care [facility]. Pt also complained of weakness and balance issues;therefore, OP PT may be considered. I agree with and certify that the following plan of care is medically necessary. Referring Physician Date Attending Provider: Riddhi Jon, DRAWING OPERATOR-BC * Outpatient Past Medical History Past Medical History Source of Past Medical History Recalled from Previous Visit, Confirmed with Patient/Family Neurological History Hx Cerebrovascular Accident (CVA) Yes: September 2020 Cardiovascular History Hx Other Cardiac Disorders Yes: I have a blocked artery Respiratory History Hx Chronic Obstructive Pulmonary Disease Yes (COPD) Hx Pneumonia Yes: aspiration pneumonia Musculoskeletal History Hx Back Pain Yes HEENT History Hx Cataracts Yes: not real bad Psychosocial History Hx Anxiety Yes Other History Hx Other Surgeries Yes: hyst, partial colon removal, neck, Bedside Swallow Evaluation General Reports Dysphagia Yes: I'm noticing its hard to swallow sometimes History of Related Medical Diagnosis CVA History of Feeding Problems Previous Swallow Evaluation, Weight Loss Reported Difficult Consistencies Unable to Identify Meal Observed Bedside Swallows History of Dysphagia No History of Pneumonia Yes Intake Method Prior to Swallow Oral Evaluation Diet Prior to Swallow Evaluation Regular, Level 7 Liquid Consistency Prior to Swallow Thin (0) Evaluation Cognition During Swallowing Alert,Attentive Orthodontic/Dental Appliances Edentulous Consistency Solid Consistency Method of Presentation Finger/Hand Occurrence of Coughing None Pureed Consistency 5 mL Method of Presentation Spoon Occurrence of Coughing None Vocal Quality After Swallowing cannot r/o silent aspiration Swallow Palpation Results Good Swallow Initiation Thin Uncontrolled 1 Method of Presentation Cup Behaviors Observed Coughing/Choking Occurrence of Coughing After Swallow Palpation Results Good Swallow Initiation,Strong Laryngeal Elevation Tolerance Tolerance For Swallow Slight Distress Alertness Awake/Safe Cooperativeness Calm,Cooperative Attention Attentive Fatigability Fatigues Easily Limiting Factors Comments transportation issues; reports
--- NOTE | 2020-12-09 11:11 | PCSTNOTE ---
Patient called & cancelled scheduled appointment on December 07 due to having a medical procedure (MRA)
--- NOTE | 2020-12-16 09:30 | PCSTNOTE ---
Patient called & cancelled scheduled appointment this date due to just can't make it today
--- NOTE | 2020-12-28 16:30 | PCSTNOTE ---
Patient called & cancelled scheduled appointment this date due to having car problems
--- NOTE | 2021-01-20 11:12 | PCSTNOTE ---
SPEECH THERAPY DISCHARGE Attending Provider: Riddhi Jon, LEAD INSPECTOR-BC Patient:Morena Sanchez Date of :1950 Pt was recently discharged from hospital and presented to outpatient speech therapy for a swallow evaluation. Pt has a diagnosis of aspiration pneumonia. Modified Barium Swallow during hospital admission revealed severe (complicated) dysphagia characterized by pharyngeal residual and aspiration with all trials which was occasionally silent. Chin tuck was not consistently effective. Also, during her hospitalization, pt appeared in denial of dysphagia. Pt was then seen in outpatient speech therapy for 4 visits. After the 4th visit, the pt did not return. On last attended visit, she stated she hadn't noticed a difference in her swallowing ability but also stated she has been eating like a horse . Throughout the course of treatment, the pt was educated regarding the previous modified barium swallow results and recommendations, swallowing guidelines, risks of aspiration, and exercises & HEP and was given written handouts. Pt verbalized and demonstrated understanding. At this time, the patient has not returned for any further treatments since 12/23/2020, therefore she will be discharged at this time. Patient?s initial visit was on 11/30/2020 10:30 and she had a total of 4 treatment visits. The goals have been partially met. Thank you for referring this patient to [facility]. Please review, sign, date and return this discharge summary [facility]. I have been updated about the patient's current status and I agree with discharge from the above service at this time. Referring Physician Date
== END 2021-02-14 11:49 | disposition home or self-care (01) ==
LOC: ANHST 14:30
PROVIDERS: PCP Internal Medicine; Visit Provider Nurse Practitioner
DX: J69.0 Pneumonitis due to inhalation of food and vomit (principal)
CPT/HCPCS: 92526; 92610

== ENCOUNTER 2022-05-09 12:27 | Outpatient (CLI) | payer MEDICARE, MEDICAID, SELFPAY ==
[2022-05-09 14:00] VITALS: PULSE 72; O2SAT 96
[2022-05-09 14:05] VITALS: PULSE 101; O2SAT 92
[2022-05-09 14:15] VITALS: PULSE 78; O2SAT 95
--- NOTE | 2022-05-09 15:42 | HOMEO2EVAL ---
Evaluation was performed at [facility] Home Oxygen Evaluation RC: Home Oxygen (O2) Evaluation Start: 05/09/22 15:39 Freq: Status: Active Protocol: RPE Activity Type Activity Date Activity User E-sign Co-sign Detail Recorded Client Recorded Date Recorded By Document 05/09/22 14:00 HEIDY [id number] 05/09/22 15:42 HEIDY Document 05/09/22 14:05 HEIDY [id number] 05/09/22 15:42 HEIDY Document 05/09/22 14:15 HEIDY [id number] 05/09/22 15:42 HEIDY 05/09/22 05/09/22 05/09/22 14:00 14:05 14:15 Home O2 Evaluation [Oxygen] -Test Phase Resting Exercise Resting -Oxygen Delivery Room Air Room Air Room Air [Pulse Oximetry] -Pulse Oximetry (90-100 %) 96 92 95 [Pulse Rate] -Pulse Rate (60-100 beats/min) 72 101 H 78 [Exercise] -Ambulation Distance (feet) 400 -Ambulation Distance (meters) 121.91 [Comments] -Home Oxygen Evaluation Comments PT WALKED ON ROOM AIR WITH WHEELED WALKER FOR STABILITY [Charges] -Treatment Charges O2 Evaluation - Outpatient
--- NOTE | 2022-05-10 13:27 | WPDPFTINT ---
PFT Procedure Performed PFT Procedure Performed Spirometry with Pre/Post Bronchodilator Plethysmography (Lung Vol) Diffusing Cap (DLCO) Flow Vol Loop PFT Interpretation Lung volumes were measured with the body plethysmography method. Lung volumes are unremarkable. Spirometry showed diminished expiratory flow rates and a diminished FEV1 to FVC ratio 65% consistent with obstructive airway disease. Following administration of a bronchodilator there was no significant change in the expiratory flow rates. Lung diffusion capacity is moderately reduced at 54% predicted. The flow volume loop is consistent with obstructive airway disease. Impression: Mild obstructive airway disease. No response to bronchodilators. Moderately reduced lung diffusion capacity.
== END 2022-05-09 12:28 | disposition home or self-care (01) ==
PROVIDERS: PCP Internal Medicine; Visit Provider Nurse Practitioner
DX: J44.9 Chronic obstructive pulmonary disease, unspecified (principal); R94.2 Abnormal results of pulmonary function studies
CPT/HCPCS: 94060; 94618; 94726; 94729

== ENCOUNTER 2022-05-16 15:14 | Outpatient (CLI) | payer MEDICARE, MEDICAID, SELFPAY ==
--- NOTE | ~2022-05-16 | CT_ITS ---
EXAMINATION:CT lung screening DATE: 05/16/2022 15:35 INDICATION: Tobacco use. Current smoker with 55 pack year history. TECHNIQUE: Computed tomography (CT) of the chest was performed without intravenous contrast. Automate d exposure control and iterative reconstruction technique were employed. The dose-length product (DLP ) was 56.31 mGy-cm. COMPARISON: Chest CT 11/01/2020 FINDINGS: There is moderate emphysema. A calcified right lung nodule and calcified right hilar lymph nodes are consistent with old granulomatous disease. There is a small left pleural effusion with pleu ral thickening. There are airspace opacities in left lower lobe with air bronchograms and architectur al distortion, consistent with rounded atelectasis. There is mild rounded atelectasis in lingula. The re is a 4 mm nodule in right upper lobe without change. There is mild mediastinal lymphadenopathy, li arpit reactive. Calcifications in the spleen are consistent with old granulomatous disease. There are changes of anterior fusion procedure in cervical spine. There is a chronic burst fracture of T12. IMPRESSION: 1. Lung-RADS category 2S: Benign appearance or behavior. Continue annual screening with noncontrast l ow-dose chest CT in 12 months. 2. Small left pleural effusion with pleural thickening, likely an exudate. Consider thoracentesis. Reviewed, dictated and finalized at location A. OGRAPHIC PRINTING PRESS OPERATOR IMPRESSION: 1. Lung-RADS category 2S: Benign appearance or behavior. Continue annual screen ing with noncontrast low-dose chest CT in 12 months. 2. Small left pleural effusion with pleural thickening, likely an exudate. Cons ider thoracentesis.
== END 2022-05-16 15:15 | disposition home or self-care (01) ==
PROVIDERS: PCP Internal Medicine; Visit Provider Internal Medicine
DX: Z12.2 Encounter for screening for malignant neoplasm of respiratory organs (principal); Z87.891 Personal history of nicotine dependence; J90 Pleural effusion, not elsewhere classified
CPT/HCPCS: 71271

== ENCOUNTER 2022-08-16 10:39 | Outpatient (CLI) | payer MEDICARE, MEDICAID, SELFPAY ==
--- NOTE | ~2022-08-16 | CT_ITS ---
EXAMINATION: CT diagnostic chest wo con DATE: 08/16/2022 11:09 INDICATION: Pleural effusion TECHNIQUE: Computed tomography (CT) of the chest was performed without intravenous contrast. The dose -length product (DLP) was 134.19 mGy-cm. Automated exposure control and iterative reconstruction tech KnCMiner were employed. COMPARISON: 05/16/2022 FINDINGS: There is moderate emphysema. There is a stable 4 mm nodule of the right upper lobe. There i s a small, unchanged left pleural effusion with adjacent to left pleural thickening. There are unchan ged airspace opacities of the left lower lobe with associated air bronchograms, consistent with round ed atelectasis. The heart size is normal. There is calcified coronary artery atherosclerosis. There i s unchanged mild mediastinal lymphadenopathy, likely reactive. There is a chronic burst fracture of T 12. There are partially imaged changes of anterior fusion in the lower cervical spine. IMPRESSION: 1. Stable small left pleural effusion with adjacent rounded atelectasis in the left lower lobe. Reviewed, dictated and finalized at location B. [employer] DIVISION MANAGER
== END 2022-08-16 10:40 | disposition home or self-care (01) ==
LOC: ANHIMG 10:46
PROVIDERS: PCP Internal Medicine; Visit Provider Nurse Practitioner
DX: J90 Pleural effusion, not elsewhere classified (principal)
CPT/HCPCS: 71250

== ENCOUNTER 2023-11-07 12:12 | Outpatient (CLI) | payer MEDICARE, MEDICAID, SELFPAY ==
--- NOTE | ~2023-11-07 | XR_ITS ---
Supine and upright views of the abdomen Clinical history: Constipation COMPARISON: 03/18/2018 Findings: Bowel gas pattern is nonspecific. 10 small metallic ring-shaped markers are present predomi nantly over the right mid abdomen and central mid abdomen. These are possibly within the ascending an d transverse colon, versus a somewhat unclear. Suture line noted in the region of the low pelvis. No evidence for obstruction or free air. No abnormal mass lesion or calcification is seen. Osseous struc tures are intact. Impression: Nonspecific bowel gas pattern. 10 small metallic ring-shaped markers, as detailed above. Reviewed, dictated and finalized at location . Impression: Nonspecific bowel gas pattern. 10 small metallic ring-shaped markers, as detailed above.
== END 2023-11-07 12:13 | disposition home or self-care (01) ==
PROVIDERS: PCP Internal Medicine
DX: K59.00 Constipation, unspecified (principal)
CPT/HCPCS: 74018

== ENCOUNTER 2023-11-09 10:41 | Outpatient (CLI) | payer MEDICARE, MEDICAID, SELFPAY ==
--- NOTE | ~2023-11-09 | XR_ITS ---
EXAMINATION: XR abdomen/kub 1V DATE: 11/09/2023 11:03 INDICATION: Colon transit study day 5 TECHNIQUE: A supine view of the abdomen on 2 radiographs was obtained. COMPARISON: Radiograph dated 11/07/[address] dated 10/30/2020 FINDINGS: Small to moderate amount of gas and stool scattered throughout the colon. No dilated loops of gas-brigido led bowel to suggest obstruction. Rectosigmoid anastomotic suture line in the central pelvis. There a re still 10 small metallic ring-shaped markers in the right lower quadrant and pelvis. One has advanc ed to the region of the rectosigmoid anastomosis. The remainder remain within the area of the ascendi ng and transverse colon. Lung bases are clear. Heart size is normal. IMPRESSION: 1. No significant change in 10 small metallic ring-shaped markers likely within the colon, one having likely advanced to the region of a rectosigmoid anastomotic suture line and the remainder still like ly within the ascending and transverse colon. Reviewed, dictated and finalized at location A. IMPRESSION: 1. No significant change in 10 small metallic ring-shaped markers likely within the colon, one having likely advanced to the region of a rectosigmoid anastomo tic suture line and the remainder still likely within the ascending and transve rse colon.
== END 2023-11-09 10:42 | disposition home or self-care (01) ==
LOC: ANHIMG 10:47
PROVIDERS: PCP Internal Medicine
DX: K59.00 Constipation, unspecified (principal)
CPT/HCPCS: 74018

== ENCOUNTER 2024-02-04 21:19 | Observation (INO) | payer MEDICARE, MEDICAID, SELFPAY ==
--- NOTE | ~2024-02-04 | XR_ITS ---
EXAM: XR knee RT 3V DATE: 02/04/2024 22:59 HISTORY: pain . COMPARISON: None available. FINDINGS: Normal mineralization. No fracture or dislocation. No lytic or blastic lesion. Tricompartm ental osteoarthritis. No erosion or periosteal change. Vascular calcifications. IMPRESSION: No acute osseous finding in the right knee. Reviewed, dictated and finalized at location K.
--- NOTE | ~2024-02-04 | US_ITS ---
EXAMINATION: US venous doppler LE RT DATE: 02/05/2024 15:05 INDICATION: Right lower limb pain. TECHNIQUE: Grayscale images without and with compression and Doppler images of the right lower extrem ity veins were obtained. COMPARISON: None FINDINGS: The right common femoral vein, profunda (deep) femoral vein, femoral vein, popliteal vein, peroneal v ein, posterior tibial veins, gastrocnemius vein, and greater saphenous vein are patent. IMPRESSION: Patent right lower extremity veins. No evidence of deep venous thrombosis. Reviewed, dictated and finalized at location K.
--- NOTE | ~2024-02-04 | XR_ITS ---
EXAMINATION: XR chest 1V Exam Date/Time: 02/04/2024 22:45 CDT HISTORY: sob Comparison: 10/31/2020, 10/29/2020. RESULT: Lines, tubes, and devices: None. Lungs and pleura: Emphysematous change. Segmental and linear left lower lung opacities. Cardiomediastinal silhouette: Stable. Other: No acute osseous or upper abdominal finding. IMPRESSION: Segmental left lower lung atelectasis/consolidation. Reviewed, dictated and finalized at location K.
--- NOTE | ~2024-02-04 | XR_ITS ---
EXAM: XR hip RT 2V w AP pelvis DATE: 02/04/2024 22:59 HISTORY: pain . COMPARISON: None available. FINDINGS: Decreased mineralization. Lumbar degenerative disc disease. Anastomotic suture line over t he pelvis. Mild bilateral hip osteoarthritis. No fracture or dislocation. IMPRESSION: No acute osseous finding in the pelvis or right hip. Reviewed, dictated and finalized at location K.
--- NOTE | 2024-02-04 21:24 | ECG_ITS ---
Test Date: 2024-02-04 21:24:37 Measurements Intervals Holt Rate: 99 P: 81 NM: 136 QRS: 59 QRSD: 83 T: 89 QT: 327 QTc: 420 Interpretive Statements SINUS RHYTHM NONSPECIFIC ST AND T-WAVE ABNORMALITY No previous ECG available for comparison Electronically Signed On 02-05-2024 14:40:20 CDT by Ariana Cisse M.D.
[2024-02-04 21:25] VITALS: BP 108/77; PULSE 100; RESP 45; TEMP 36.8; O2SAT 94
[2024-02-04 21:32] VITALS: PULSE 97
[2024-02-04] MEDS: IPRATROPIUM 0.5 MG/ALBUTEROL SULFATE 2.5 MG AMPUL.NEB 3 ML INHALATION (21:58)
[2024-02-04 21:59] VITALS: PULSE 89; RESP 22
[2024-02-04] MEDS: methylPREDNISolone SOD SUCC 125 MG VIAL IV PUSH (22:00)
[2024-02-04 22:11] LABS: Basophils Percent Auto 0.2 % (0.2-1.2); Eosinophils Absolute Auto 0.1 K/mm3 (0-0.3); Eosinophils Percent Auto 0.8 % (0-4.4); Hematocrit 42.4 % (37.0-47.0); Hemoglobin 13.5 g/dL (12.0-15.0); Immature Granulocyte Absolute 0.02 K/mm3 (0.00-0.031); Immature Granulocyte Percent A 0.2 % (0-0.5); Lymphocytes Absolute Auto 3.04 K/mm3 (0.9-3.2); Lymphocytes Percent Auto 36.1 % (18.3-44.2); Mean Corpuscular HGB Conc 31.8 g/dl (32-36); Mean Corpuscular Hemoglobin 32.5 pg (26-34); Mean Corpuscular Volume 102.2 fl (80-100); Monocytes Absolute Auto 0.6 K/mm3 (0.1-0.6); Monocytes Percent Auto 7.1 % (2.6-8.5); Neutrophils Absolute Auto 4.7 K/mm3 (1.3-6.7); Neutrophils Percent Auto 55.6 % (45.5-73.1); Platelet Count Result 168 k/mm3 (150-375); Red Blood Count 4.15 M/mm3 (4.2-5.4); Red Cell Distribution Width 13.2 % (11.5-14.5); White Blood Count 8.4 K/mm3 (4.5-10.0)
[2024-02-04 22:14] VITALS: PULSE 90; RESP 15
[2024-02-04 22:24] LABS: Alanine Aminotransferase 11 U/L (6-35); Albumin Level 4.2 g/dL (3.5-5.1); Alkaline Phosphatase 80 U/L (38-126); Anion Gap 8 mmol/L (4-12); Aspartate Amino Transferase 20 U/L (14-36); Bilirubin,Total 0.4 mg/dL (0.2-1.3); Blood Urea Nitrogen 13 mg/dL (7-17); Calcium 8.7 mg/dL (8.4-10.2); Carbon Dioxide 26 mmol/L (22-30); Chloride 104 mmol/L (98-107); Estimated CRCL calculation 46 ml/min; Estimated Glomerular Filt Rate > 60; Glucose 114 mg/dL (65-110); Potassium 3.3 mmol/L (3.4-5.0); Sodium 138 mmol/L (137-145)
[2024-02-04 22:27] LABS: Fractional Inspired Oxygen 21 %; HCO3 VBG 24.9 mEq/l (24.0-30.0); PCO2 VBG 38.4 mmHg (42.0-48.0); PO2 VBG 71.9 mmHg (35.0-45.0)
[2024-02-04 22:29] LABS: Device ROOM AIR
[2024-02-04 22:43] LABS: Lipase 72 U/L (23-300); Magnesium 2.2 mg/dL (1.6-2.3)
[2024-02-04 22:56] LABS: NT Pro B Type Natriuretic Pept 117 pg/mL (19.9-100); Troponin I < 0.012 ng/mL (0.000-0.034)
--- NOTE | 2024-02-04 23:41 | ED.GENADULT ---
HPI - General Adult General Chief complaint: Shortness of Breath/Dyspnea Stated complaint: DIFFICULTY IN BREATHING Time Seen by Provider: 02/04/24 21:35 History of Present Illness HPI narrative: Patient is a 73-year-old female who presents emergency department with chief complaint of shortness of breath patient has history of COPD and reports that she has been feeling it short of breath over the last several days reports that whenever EMS was called she was saturating 89% on room air and was tripoding and very tachypneic. The patient was given a DuoNeb in route to the emergency department which did improve her symptoms significantly. The patient reports that she has had no fever reports that she has for about 6-8 weeks had issues with ambulation and had constant pain in her right leg worse with movement. The patient reports she attempts to use a cane but really can only walk a few feet at home without either getting short of breath or having severe pain. Patient reports no new trauma Related Data Home Medications Medication Instructions Recorded Confirmed buprenorphine 8 mg-naloxone 2 mg 1 film sublingual BID 03/02/20 10/29/20 sublingual film gabapentin 600 mg tablet 600 mg PO TID 03/02/20 10/29/20 amitriptyline 50 mg tablet 50 mg PO HS 10/29/20 10/29/20 Allergies Allergy/AdvReac Type Severity Reaction Status Date / Time codeine Allergy Unknown swelling Verified 02/04/24 21:32 of hands Review of Systems Review of Systems: A 10 system review of systems was completed on the patient and is negative except for what is stated in the HPI. Nursing and ancillary documentation was reviewed. [facility] Past Medical History Medical History Chronic back pain Continuous tobacco abuse COPD (chronic obstructive pulmonary disease) Hepatitis C virus infection cured after antiviral drug therapy Lung nodules Noted on CT from March 2020 with 4.5 mm right upper lobe and 3 mm left upper lobe with nodule Myocardial infarct 2013 Neuropathy Surgical History Surgical History History of appendectomy History of cardiac catheterization (~2012) History of colon resection (~2004) For uncertain reason History of colonoscopy with polypectomy (~2016) History of total hysterectomy with bilateral salpingo-oophorectomy (BSO) Hx of cholecystectomy Family History Family History Sibling Lung cancer July 2020 Sibling Lung cancer 2nd brother just recently diagnosed with lung cancer August 2020 Social History Social History Social History: The patient lives at home with her daughter and granddaughter. She has several other children as well. 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 She started smoking at age 15. She has smoked as much as a pack of cigarettes per day but has cut back to 1/3 of a pack per day. She denies any alcohol use or illicit substance use. Primary care physician: Dr. Daljit Walters Code status: Full code Surrogate decision maker: Becca Hendrix (daughter) Smoking packs per day: 1 Smoking cigarettes per day: 20.0 Years smoked: 55 Smoking pack-years: 55.00 Smoking status: Current every day smoker Tobacco type: cigarettes Second hand tobacco smoke exposure: No Additional smoking assessment comments: 1 pack every 3 days Alcohol intake: never Substance use: current Substance use type: marijuana Living arrangements: with family Gender identity (if verbalized by the patient): Female Sexual Orientation (if Verbalized by the Patient): Straight or Heterosexual Spiritual care concerns: No Exam Narrative: GENERAL: Well-appearing, well-nouris
[2024-02-04 23:52] LABS: INR 0.9; Prothrombin Time 12.8 Seconds (11.1-14.7)
[2024-02-04 23:53] LABS: Partial Thromboplastin Time 23.8 Seconds (22.3-36.8)
[2024-02-05] VITALS (15 sets, daily range): BP systolic 106–118; BP diastolic 61–74; PULSE 75–95; RESP 15–26; TEMP 36.1–36.7; O2SAT 90–96; BMI 15.4
--- NOTE | 2024-02-05 00:09 | PM.IMHP ---
H&P: HPI History of Present Illness Date/Time: 02/04/24 23:50 Chief Complaint: Dyspnea, weakness Narrative: Patient is a 73-year-old female with past medical history of nicotine dependence, COPD, depression presents to ED with complaints of generalized weakness and dyspnea. Patient lives at home and has her daughter as her auxiliary plant operator. She was in her usual state of health until couple days ago when she started getting worsening dyspnea. She still an active smoker and has tried quitting in the past however has not been successful. She states nicotine patches do not help. She is also very depressed and feels Zoloft has not helped. She is DNR. Patient states she does not want to go to nursing facility, she will go home with auxiliary plant operator daughter. In the ED: She presented with tripoding, increased respiratory distress, given Solu-Medrol and DuoNeb. She was weaned to room air however had increased work of breathing with ambulation. She complains of some pain in her right knee and hips, imaging shows no acute fracture. Patient be admitted for observation for COPD exacerbation and generalized weakness. Review of Systems Review of Systems: Constitutional: No Fever, No Chills, No Night Sweats, endorses generalized weakness and malaise ENT/Mouth: No Hearing Changes, No Ear Pain, No Nasal Congestion, No Sinus Pain, No Hoarseness, No sore throat, No Rhinorrhea, No Swallowing Difficulty Eyes: No Eye Pain, No Redness, No Vision Changes Cardiovascular: No Chest Pain, No Palpitations, No Dyspnea on Exertion, No Orthopnea, No Claudication, No Edema Respiratory: No Cough, No Sputum, No Wheezing, endorses dyspnea Gastrointestinal: No Nausea, No Vomiting, No Diarrhea, No Constipation, No Abdominal Pain, No Heartburn, No Hematochezia, No Melena Genitourinary: No Dysuria, No Urinary Frequency, No Hematuria, No Urinary Incontinence, No Urgency Musculoskeletal: No Arthralgias, No Myalgias, No Joint Swelling, No Joint Stiffness, No Back Pain Skin: No Skin Lesions, No Pruritis, No Hair Changes Neuro: No focal Weakness, No Numbness, No Paresthesias, No Loss of Consciousness, No Syncope, No Dizziness, No Headache Psych: No Anxiety/Panic, No Depression, No Insomnia Heme: No Bruising, No Bleeding Lymph: No Adenopathy Endocrine: No Polyuria, No Polydipsia, No Temperature Intolerance [facility] Past Medical History Medical History Chronic back pain Continuous tobacco abuse COPD (chronic obstructive pulmonary disease) Hepatitis C virus infection cured after antiviral drug therapy Lung nodules Noted on CT from March 2020 with 4.5 mm right upper lobe and 3 mm left upper lobe with nodule Myocardial infarct 2014 Neuropathy Surgical History Surgical History History of appendectomy History of cardiac catheterization (~2012) History of colon resection (~2004) For uncertain reason History of colonoscopy with polypectomy (~2016) History of total hysterectomy with bilateral salpingo-oophorectomy (BSO) Hx of cholecystectomy Family History Family History Sibling Lung cancer July 2020 Sibling Lung cancer 2nd brother just recently diagnosed with lung cancer August 2020 Social History Social History Social History: The patient lives at home with her daughter and granddaughter. She has several other children as well. 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 She started smoking at age 15. She has smoked as much as a pack of cigarettes per day but has cut back to 1/3 of a pack per day. She denies any alcohol use or illicit substance use. Primary care physician: Dr. Daljit Walters Code status: Full code Surrogate decision maker: Becca
[2024-02-05 00:17] LABS: Influenza A QL RT-PCR Negative (Negative); Influenza B QL RT-PCR Negative (Negative); RSV RNA, RT-PCR Negative (Negative); SARS-CoV-2 RNA PCR Negative (Negative)
[2024-02-05 00:30] LABS: Lactic Acid Reflex 1.4 mmol/L (0.7-2.0)
--- NOTE | 2024-02-05 01:12 | ADMGEN ---
This patient, Morena Sanchez, was admitted to [address] [place] [address] Room 315-02. Patient/family oriented to hospital policies and general routines including ID bracelet, bed and alarms, visiting hours, pain management, procedures, bathroom and other care routines, personal items, smoking policy, room service/diet, and visiting hours. Information on how to activate the Rapid Response Team has been discussed. Patient/Family are encouraged to report perceived risks to care and to ask questions if they do not understand what they are told or what they should do.
[2024-02-05] MEDS: IPRATROPIUM 0.5 MG/ALBUTEROL SULFATE 2.5 MG AMPUL.NEB 3 ML INHALATION ×4 (02:06→20:41)
[2024-02-05 02:25] LABS: Troponin I < 0.012 ng/mL (0.000-0.034)
[2024-02-05] MEDS: methylPREDNISolone SOD SUCC 125 MG VIAL 40 MG IV PUSH ×3 (05:17→21:04)
[2024-02-05 10:34] LABS: Hematocrit 45.9 % (37.0-47.0); Hemoglobin 14.5 g/dL (12.0-15.0); Mean Corpuscular HGB Conc 31.6 g/dl (32-36); Mean Corpuscular Hemoglobin 32.7 pg (26-34); Mean Corpuscular Volume 103.4 fl (80-100); Mean Platelet Volume 11.4 fl (7.4-10.4); Platelet Count Result 190 k/mm3 (150-375); Red Blood Count 4.44 M/mm3 (4.2-5.4); Red Cell Distribution Width 13.2 % (11.5-14.5); White Blood Count 8.2 K/mm3 (4.5-10.0)
[2024-02-05] MEDS: DOCUSATE SODIUM 100 MG CAPSULE PO ×2 (10:48→17:24)
[2024-02-05] MEDS: ROSUVASTATIN 20 MG TABLET 40 MG PO (10:48)
[2024-02-05] MEDS: SERTRALINE HCL 25 MG TABLET PO (10:48)
[2024-02-05] MEDS: guaiFENesin 12 HR 600 MG TABCR PO ×2 (10:48→21:03)
[2024-02-05] MEDS: PANTOPRAZOLE 40 MG TABLET PO (10:49)
[2024-02-05] MEDS: AZITHROMYCIN 250 MG TABLET 500 MG PO (10:49)
[2024-02-05] MEDS: GABAPENTIN 400 MG CAPSULE 800 MG PO ×3 (10:49→17:24)
[2024-02-05] MEDS: POTASSIUM CHLORIDE 20 MEQ ER TABLET 40 MEQ PO (10:49)
[2024-02-05] MEDS: ENOXAPARIN 40 MG/0.4 ML SYRINGE SUB-Q (10:50)
[2024-02-05 11:01] LABS: Albumin Level 4.3 g/dL (3.5-5.1); Alkaline Phosphatase 82 U/L (38-126); Anion Gap 12 mmol/L (4-12); Aspartate Amino Transferase 21 U/L (14-36); Bilirubin,Total 0.4 mg/dL (0.2-1.3); Blood Urea Nitrogen 11 mg/dL (7-17); Calcium 8.6 mg/dL (8.4-10.2); Carbon Dioxide 27 mmol/L (22-30); Chloride 101 mmol/L (98-107); Estimated CRCL calculation 35 ml/min; Estimated Glomerular Filt Rate > 60; Glucose 176 mg/dL (65-110); Magnesium 2.2 mg/dL (1.6-2.3); Sodium 140 mmol/L (137-145)
[2024-02-05 11:25] LABS: Alanine Aminotransferase 18 U/L (6-35)
[2024-02-05 11:46] LABS: Vitamin D 25 Hydroxy 46.6 ng/mL
--- NOTE | 2024-02-05 12:39 | P.PNCROSS_ITS ---
Event Note Event Note Event Note: Patient had been seen by previous provider same day. Follow-up with patient on assessment she reported shortness of breath had mildly improved however she was having severe pain to her right lower extremity. Patient does have a history of neuropathy and is on gabapentin however still unrelieved will add some tramadol there is no noticeable swelling or erythema. Patient on room air however does have diminished lung sounds with wheezing throughout. Added azithromycin, gua ifenesin and Claritin to treatment plan if patient doing well tomorrow can likely go back home with daughter PT OT pending for recommendations. Patient did report she is still smoking encouraged smoking cessation.
[2024-02-05 12:52] LABS: Add Urine Microscopic? NO; Appearance Urine Clear (Clear); Bilirubin Urine Negative (Negative); Blood Urine Negative (Negative); Color Urine Yellow (Yellow); Glucose Urine UA Negative (Negative); Ketones Urine Negative (Negative); Leukocyte Esterase Ur Negative LEU/UL (Negative); Nitrate Urine Negative (Negative); Protein Urine Negative (Negative); Specific Grav Ur 1.005 (1.001-1.035); Urobilinogen Urine 0.2 mg/dL (<2.0)
[2024-02-05] MEDS: traMADol HCL (*CRX) 50 MG TABLET PO ×2 (14:36→22:14)
[2024-02-05] MEDS: LORATADINE 10 MG TABLET PO (21:03)
[2024-02-06 05:52] VITALS: BP 111/71; PULSE 79; RESP 20; TEMP 36.2; O2SAT 98
[2024-02-06] MEDS: methylPREDNISolone SOD SUCC 125 MG VIAL 40 MG IV PUSH ×2 (05:56→13:38)
[2024-02-06] MEDS: traMADol HCL (*CRX) 50 MG TABLET PO (05:57)
--- NOTE | 2024-02-06 06:20 | PCRCNOTE ---
Patient did not want to be awakened for 0200 updraft treatment. Consider changing to while awake . Treatment to resume at 0800.
[2024-02-06 06:35] LABS: Hematocrit 39.6 % (37.0-47.0); Hemoglobin 12.7 g/dL (12.0-15.0); Mean Corpuscular HGB Conc 32.1 g/dl (32-36); Mean Corpuscular Hemoglobin 32.7 pg (26-34); Mean Corpuscular Volume 102.1 fl (80-100); Mean Platelet Volume 11.2 fl (7.4-10.4); Platelet Count Result 201 k/mm3 (150-375); Red Blood Count 3.88 M/mm3 (4.2-5.4); Red Cell Distribution Width 13.1 % (11.5-14.5); White Blood Count 14.3 K/mm3 (4.5-10.0)
[2024-02-06 06:46] LABS: Alanine Aminotransferase 12 U/L (6-35); Albumin Level 3.9 g/dL (3.5-5.1); Alkaline Phosphatase 76 U/L (38-126); Anion Gap 12 mmol/L (4-12); Aspartate Amino Transferase 17 U/L (14-36); Bilirubin,Total 0.3 mg/dL (0.2-1.3); Blood Urea Nitrogen 13 mg/dL (7-17); Calcium 8.9 mg/dL (8.4-10.2); Carbon Dioxide 22 mmol/L (22-30); Chloride 102 mmol/L (98-107); Estimated CRCL calculation 35 ml/min; Estimated Glomerular Filt Rate > 60; Glucose 176 mg/dL (65-110); Potassium 4.2 mmol/L (3.4-5.0); Sodium 136 mmol/L (137-145)
[2024-02-06] MEDS: IPRATROPIUM 0.5 MG/ALBUTEROL SULFATE 2.5 MG AMPUL.NEB 3 ML INHALATION ×2 (07:38→13:25)
[2024-02-06 07:39] VITALS: PULSE 77; RESP 16; O2SAT 93
--- NOTE | 2024-02-06 07:50 | PM.IMPN ---
Progress Note: A&P Assessment and Plan (1) Debility: Code(s): R53.81 - Other malaise Status: Acute (2) COPD exacerbation: Code(s): J44.1 - Chronic obstructive pulmonary disease with (acute) exacerbation Status: Acute Plan # COPD exacerbation -patient has known COPD, most recent PFTs 05/2022 shows mild obstructive airway disease, moderately reduced lung diffusion capacity -patient still active smoker, no sick contacts, no recent travel, no other obvious trigger -steroids: Given Solu-Medrol in the ED, will continue 40 mg q.8 hour solu medrol -no leukocytosis, procalcitonin negative, holding off antibiotics -nebs: Continue DuoNebs q.i.d. -incentive spirometer ordered for atelectasis (chest x-ray shows left lower lung atelectasis) # debility -patient has increased weakness, uses cane at baseline, has walker and wheelchair -PT OT consulted -patient will likely benefit from home health -patient has bronzer daughter # chronic conditions -chronic constipation: Continue laxative, docusate b.i.d., p.r.n. MiraLax, magnesium hydroxide suspension -depression: On Zoloft? Amitriptyline -diffuse pain: On gabapentin, she has been off opiates for last 6 years -nicotine dependence: Patient is refusing nicotine patch, states that does not work, I attempted smoking cessation discussion Diet: Heart healthy DVT prophylaxis: Lovenox Code status: DNR (discussed with patient and daughter bedside) Disposition: Home with home health in 1-2 days Date of service 02/04/2024 Subjective Date/time seen: 02/06/24 07:50 Interval history: Patient is a 73-year-old female with past medical history of nicotine dependence, COPD, depression presents to ED with complaints of generalized weakness and dyspnea. Patient lives at home and has her daughter as her bronzer. She was in her usual state of health until couple days ago when she started getting worsening dyspnea. She still an active smoker and has tried quitting in the past however has not been successful. She states nicotine patches do not help. She is also very depressed and feels Zoloft has not helped. She is DNR. Patient states she does not want to go to nursing facility, she will go home with bronzer daughter. 02/05: Exam Narrative: General: well appearing, appears stated age. HEENT: normocephalic, atraumatic. Mucous membranes moist. EOMI, PERRLA, bilateral sclera anicteric, no conjunctival injection. Neck supple without JVD, lymphadenopathy, or bruit. Respiratory: clear to ascultation bilaterally. No rales/rhonic/wheezes. Cardiovascular: Regular rate and rhythm, normal S1-S2 upon ascultation. No murmurs, rubs, or clicks. PMI is nondisplaced, capillary refill less than 3 second. Abdomen: Soft, round, no pulsatile masses, nondistended and nontender. No rebound, no guarding. No CVA tenderness, no hepatosplenomegaly. Bowel sounds present to all four quadrants. No high pitch or tinkling sounds, resonant to percussion. Extremities: No cyanosis, clubbing, or edema present. Pulses are palpable 2/2. Active ROM to all four extremities. Neuro: Alert and orientated x 4. PERRLA. Cranial nerves 2-12 intact without focal deficit. Skin: Warm, dry, and intact, without rash, erythema, or lesion. Lines: Incisions: Psych: pleasant, cooperative, normal speech, normal affect, no hallucinations, no dysarthia Objective Data Vital Signs Vital Signs: Vital Signs - 24 hr 02/05/24 09:08 02/05/24 09:09 02/05/24 09:19 Temperature Pulse Rate 75 76 Respiratory Rate 16 16 Blood Pressure Pulse Oximetry 94 Oxygen Delivery Room Air Fraction of Inspired Oxygen 02/05/24 10:40 02/05/24 13:35 02/05/24 13:46 Temperature Pulse Rate 88 88 Respiratory Rate 16 16 Blood Pressure Pulse Oximetry Oxygen Delivery Room Air Fraction of Inspired Oxygen 02/05/24 13:57 02/05/24 20:41 02/05/24 20:45 Temperature 96.9 F L Pulse Rate 88 89 89
[2024-02-06 07:53] VITALS: PULSE 80; RESP 16
[2024-02-06] MEDS: GABAPENTIN 400 MG CAPSULE 800 MG PO ×2 (10:23→13:37)
[2024-02-06] MEDS: DOCUSATE SODIUM 100 MG CAPSULE PO (10:23)
[2024-02-06] MEDS: AZITHROMYCIN 250 MG TABLET PO (10:24)
[2024-02-06] MEDS: guaiFENesin 12 HR 600 MG TABCR PO (10:24)
[2024-02-06] MEDS: SERTRALINE HCL 25 MG TABLET PO (10:24)
[2024-02-06] MEDS: PANTOPRAZOLE 40 MG TABLET PO (10:24)
[2024-02-06] MEDS: ROSUVASTATIN 20 MG TABLET 40 MG PO (10:25)
[2024-02-06] MEDS: ENOXAPARIN 40 MG/0.4 ML SYRINGE SUB-Q (10:25)
--- NOTE | 2024-02-06 13:24 | PCPTNOTE ---
On 02/06/24, the student, [Kirsty Yeager], provided care and completed [facility] documentation on this patient. I have reviewed the student's documentation and agree with the findings.
[2024-02-06 13:25] VITALS: PULSE 88; RESP 16
[2024-02-06 13:33] VITALS: PULSE 88; RESP 16
--- NOTE | 2024-02-06 13:51 | PM.DS ---
DS: Admitting Diagnosis Discharge Date 02-05 Admitting Diagnosis Shortness of breath DS: Discharge Diagnosis Discharge Diagnosis (1) COPD exacerbation: Code(s): J44.1 - Chronic obstructive pulmonary disease with (acute) exacerbation Status: Acute (2) Debility: Code(s): R53.81 - Other malaise Status: Acute Plan # COPD exacerbation -patient has known COPD, most recent PFTs 05/2022 shows mild obstructive airway disease, moderately reduced lung diffusion capacity -patient still active smoker, no sick contacts, no recent travel, no other obvious trigger -steroids: Given Solu-Medrol in the ED, will continue 40 mg q.8 hour solu medrol -no leukocytosis, procalcitonin negative, holding off antibiotics -nebs: Continue DuoNebs q.i.d. -incentive spirometer ordered for atelectasis (chest x-ray shows left lower lung atelectasis) # debility -patient has increased weakness, uses cane at baseline, has walker and wheelchair -PT OT consulted -patient will likely benefit from home health -patient has deck specialist daughter # chronic conditions -chronic constipation: Continue laxative, docusate b.i.d., p.r.n. MiraLax, magnesium hydroxide suspension -depression: On Zoloft? Amitriptyline -diffuse pain: On gabapentin, she has been off opiates for last 6 years -nicotine dependence: Patient is refusing nicotine patch, states that does not work, I attempted smoking cessation discussion Diet: Heart healthy DVT prophylaxis: Lovenox Code status: DNR (discussed with patient and daughter bedside) Disposition: Home with home health in 1-2 days Date of service 02/04/2024 DS: Summary Hospital Course Reason for hospitalization: COPD exacerbation Hospital Course: Patient is a 73-year-old female with past medical history of nicotine dependence, COPD, depression presents to ED with complaints of generalized weakness and dyspnea. Patient lives at home and has her daughter as her deck specialist. She was in her usual state of health until couple days ago when she started getting worsening dyspnea. She still an active smoker and has tried quitting in the past however has not been successful. She states nicotine patches do not help. She is also very depressed and feels Zoloft has not helped. She is DNR. Patient states she does not want to go to nursing facility, she will go home with deck specialist daughter. In the ED: She presented with tripoding, increased respiratory distress, given Solu-Medrol and DuoNeb. She was weaned to room air however had increased work of breathing with ambulation. She complains of some pain in her right knee and hips, imaging shows no acute fracture. Patient be admitted for observation for COPD exacerbation and generalized weakness. She was started on azithromycin, IV steroids, and DuoNebs Q 6. Her symptoms improved and she was weaned off of oxygen back to room air. Hospitalization was uneventful. 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 Imaging of her right hip was negative for fracture. She was discharged home with azithromycin, prednisone, and AirDuo inhaler. She has an appointment with her nutrition therapist tomorrow which she was instructed to keep. She also needs to follow up with her primary care provider as needed. She was asking for tramadol script for pain. Prescription monitoring review shows that she has been on Suboxone in the past. I declined rating her script for tramadol encouraged her to follow-up with her pain management doctor. She was discharged home in care of her daughter. Time Spent with Patient Time attestation: Total time spent providing and/or coordinating discharge services: 70 Exam Narrative: General: well appearing, appears stated age. HEENT: normocephalic, atraumatic. Mucous membranes moist. EOMI, PERRLA, bilateral sclera anicteric, no conjunctival injection. Neck supple without JVD, lymphadenopathy, or bruit. Respiratory
[2024-02-06 14:00] VITALS: BP 148/73; PULSE 80; RESP 26; TEMP 36.6; O2SAT 96
== END 2024-02-06 15:30 | disposition home or self-care (01) ==
LOC: ANHED 23:53 → ANH3MEDSUR 02-05 00:48
PROVIDERS: Nurse Practitioner Family; Admitting Provider Student in an Organized Health Care Education/Training Program; Emergency Provider Emergency Medicine; PCP Internal Medicine; Visit Provider Nurse Practitioner Acute Care
DX: J44.1 Chronic obstructive pulmonary disease with (acute) exacerbation (principal); M79.604 Pain in right leg; R53.81 Other malaise; K59.09 Other constipation; F32.A Depression, unspecified; I25.2 Old myocardial infarction; G62.9 Polyneuropathy, unspecified; R91.1 Solitary pulmonary nodule; Z86.19 Personal history of other infectious and parasitic diseases; F17.210 Nicotine dependence, cigarettes, uncomplicated; F12.90 Cannabis use, unspecified, uncomplicated; Z66 Do not resuscitate; Z20.822 Contact with and (suspected) exposure to COVID-19
CPT/HCPCS: 36415; 71045; 73502; 73562; 80053; 81003; 82306; 82803; 83605; 83690; 83735; 83880; 84145; 84484; 85025; 85027; 85610; 85730; 87040; 87637; 93005; 93971; 94640; 96372; 96374; 96376; 97161; 97165; 99285; A9270; G0378; J1650; J2919